=== PATIENT | female | born 1950 | race Caucasian/White ===

== ENCOUNTER → 2016-04-30 | Outpatient (CLI) | payer BC ==
[~2016-04-30] MED LIST: EPP3/2 IM; GABA-113 PO; HYDR-3785 PO; MULT-506 PO; OMEG10007 PO; ONDA4TAB65 PO; URC10 PO
--- NOTE | 2016-04-30 10:30 | Discharge Instructions ---
Discharge Instructions Procedure Procedure Date: Apr 30, 2016. Reason for visit: Left Masses And Asymmetries/Latex Allergy. Discharge Discharge Date: Apr 30, 2016. Discharge Diagnosis: status post breast biopsy Instructions Activity Recommendations: Additional Limitations (see below) Return to School/Work: no limitations Recommended Home Diet: No Limitations Provider Instructions: ACTIVITY RECOMMENDATIONS: * No lifting, pushing, pulling or exercising the affected side for three days. RETURN TO SCHOOL/WORK: * You may return to work/school after the procedure, but do not perform any strenuous activities for 24 to 48 hours. MEDICATIONS: * Tylenol (two 325 mg) every four to six hours if needed for mild pain (if not allergic to Tylenol). DIET: * Resume previous diet. SPECIAL CARE INSTRUCTIONS: * Keep biopsy site dry for 24 hours. May shower after 24 hours, but do not soak (bathe) incision. * May remove Tegaderm (plastic patch) tomorrow AFTER showering. * Leave the steri-strips on for one week. Allow the steri-strips to fall off by themselves. If not off after one week, you may remove them. You may place a Bandaid crosswise over the strips, if desired. * Apply ice 10 minutes on and 10 minutes off as needed. * Wear a bra at bedtime to sleep more comfortably for 2-3 days. * Your referring physician should have the results after approximately 5 to 7 business days. * Call for unusual bleeding, fever, drainage, etc or if you have any questions call during normal business hours or after hours call Dr Alicia, . FOLLOW UP VISIT: Follow-up with Referring Physician as scheduled. Allergies Coded Allergies: BEE STING (Verified Allergy, Severe, ANAPHYLAXIS, 10/14/15) Latex1 -Allergic Contact Dermititis (Unverified Adverse Reaction, Unknown , unkwn, 10/14/15) Fitz Burt Recommendations: Call your doctor if: * Temperature above 101 degrees * Pain not relieved by pain medicine ordered * There is increased drainage or redness from any incision * You have any unanswered questions or concerns. Your Doctors Instructions noted above were prepared by provider Rola Alicia. Patient Signature Section: Patient Instructions Signature Page Cristiana Ramos Patient (or Guardian) Signature/Date: I have read and understand the instructions given to me by my caregivers. Caregiver/RN/Doctor Signature/Date: The above-named patient and/or guardian has received patient instructions on this date. + Original Patient Signature Page (only) stays with chart. Please make copy for patient.
--- NOTE | 2016-04-30 13:52 | MAMMOGRAPHY REPORT ---
THIS REPORT HAS BEEN AMENDED. ULTRASOUND GUIDED BIOPSY LEFT BREAST: 04/30/2016 CLINICAL HISTORY: Left 10:00 breast mass. PATIENT CONSENT: The procedure, risks and benefits were discussed with the patient and informed writ ten consent was obtained. A timeout was performed immediately prior to the procedure. PROCEDURE DESCRIPTION: With ultrasound guidance, aseptic technique, and lidocaine as the local anest hetic (1% lidocaine to anesthetize the skin and 1% lidocaine with epinephrine to anesthetize the vel per tissues), the mass of concern in the left 10:00 breast was sampled 4 times with a 14-gauge Achie ve biopsy needle. Immediately thereafter, with ultrasound guidance, aseptic technique, and lidocain e as the local anesthetic, a metallic localizer clip was placed centrally in the mass. Direct press ure was applied to the site immediately post procedure and hemostasis was achieved. Postprocedure u nilateral mammograms were performed to confirm placement of the clip in the expected location of the breast mass. The patient tolerated the procedure without complication. She was given wound care instructions. The specimens were sent to pathology for analysis. COMPARISON: Comparison is made to exams dated: 03/19/2016 mammogram, 05/09/2012 mammogram, 04/27/2010 mammogram, 04/28/2011 mammogram, and 04/24/2009 mammogram - [facility]. IMPRESSION: ULTRASOUND GUIDED BIOPSY Ultrasound guided core needle biopsy of the left 10:00 breast mass, with clip placement. The patien t will receive pathology results from her referring physician. Pending malignant pathology results, would recommend bilateral breast MRI to further evaluate the other left breast masses and left axil harriet lymph nodes. Rola Alicia M.D. ah/:04/30/2016 12:15:33 Briquette Maker: Arabella Manley, [facility] AMENDMENT: 05/13/2016 Rola Alicia M.D. Pathology results from ultrasound-guided biopsy of the left 10:00 breast mass were reviewed on 2016. The pathology shows infiltrating ductal carcinoma grade 1, which is concordant with the imagi ng appearance. As recommended on the diagnostic report, bilateral breast MRI is recommended for fur ther evaluation. If breast MRI is not obtained, then ultrasound-guided biopsy should be performed o f the left subareolar breast mass.
--- NOTE | 2016-04-30 13:53 | MAMMOGRAPHY REPORT ---
UNILATERAL LEFT DIGITAL DIAGNOSTIC MAMMOGRAM TOMOSYNTHESIS AND TARGETED LEFT ULTRASOUND: 04/30/2016 CLINICAL HISTORY: Callback from screening mammogram for left breast mass and asymmetries. TECHNIQUE: Breast tomosynthesis in addition to standard 2D mammography was performed. Spot nandini isael left CC and MLO 2-D and tomosynthesis images, spot magnification left CC and ML views, and post procedural left CC and ML views were obtained. COMPARISON: Comparison is made to exams dated: 03/19/2016 mammogram, 05/09/2012 mammogram, 04/28/2011 mammogram, 04/27/2010 mammogram, 04/24/2009 mammogram - [facility], and 04/23/2008. BREAST COMPOSITION: The tissue of the left breast is heterogeneously dense, which may obscure small masses. FINDINGS: Spot magnification views of the left breast demonstrate an irregular spiculated 1.5 x 1.3 cm mass in the left upper inner quadrant. Additionally, there is an oval circumscribed 7 x 5 mm ma ss in the left subareolar breast which appears more prominent in size compared to prior exams. Spot compression views of the left breast demonstrate a possible oval circumscribed 6 mm mass seen withi n the left superior posterior breast, only clearly seen on the MLO view but is thought to project la terally based on the tomosynthesis localizer bar. This is only well seen on the tomosynthesis image s so it is difficult to accurately compare with prior exams. The other previously seen asymmetry mo re inferiorly effaces on the additional spot compression views. Targeted ultrasound was performed of the left breast. In the left breast at 10:00, 3 cm from the ni pple, there is a hypoechoic irregular solid mass which measures 1.3 x 1.3 x 1.2 cm. This correspond s with the mammographic mass and is highly suspicious for malignancy. Targeted ultrasound was perfo rmed of the left upper outer quadrant in the region of the possible circumscribed 6 mm mass seen on the mammogram. No suspicious solid masses were evident. In the left breast at 3:00, 7 cm from the nipple, there is an oval anechoic 4 x 4 mm mass which is benign and consistent with a simple cyst. This likely does not correlate with the mammographic mass; however, the mammographic mass has a rosalba gn morphology and may represent an intramammary lymph node which is occult on ultrasound. Targeted ultrasound was performed of the left axilla. There is one axillary lymph node measuring 1. 6 cm, which has a normal fatty hilum and the majority of the cortex is thin, however, there is one a cedric of focal thickening of the cortex which measures 3 mm in cortical thickness. This is equivocal. Two other lymph nodes do not clearly have echogenic fatty shilpi and are therefore also equivocal, o ne measuring 6 x 3 x 4 mm and the other measuring 4 x 4 mm. Targeted ultrasound was performed of the left subareolar breast in the region of the mammographic ma ss. In the left 11:00 subareolar breast, there is an oval hypoechoic solid appearing mass which mo sures 8 x 5 x 6 mm. This corresponds with the mammographic mass and is indeterminant given the incr eased size mammographically and solid appearance on ultrasound. Postprocedural mammograms were performed after the core needle biopsy, which shows a new biopsy tory er clip seen within the biopsied left 10:00 breast mass. IMPRESSION: ACR BI-RADS CATEGORY 5: HIGHLY SUGGESTIVE OF MALIGNANCY, TARGETED ULTRASOUND ACR BI-RAD S CATEGORY 5: HIGHLY SUGGESTIVE OF MALIGNANCY 1. Highly suspicious 1.5 cm mass seen within the left breast at 10:00, for which ultrasound guided biopsy is recommended for further evaluation. This was performed immediately after the diagnostic w orkup. 2. Hypoechoic 8 mm mass in the left subareolar breast, which appears more prominent compared to liana or mammograms. The mass is indeterminant. If pathology results of the left 10:00 breast mass are m alignant, would recommend bilateral breast MRI due to the dense breast parenchyma mammographically, and the subareolar mass could be evaluated on MRI. Alternatively, if MRI is not performed, recommen d ultrasound-guided core needle biopsy. 3. Two to three equivocal left axillary lymph nodes. These could also be evaluated on breast MRI t o determine whether a core biopsy should be performed. 4. Circumscribed benign-appearing 6 mm mass seen within the left superior posterior breast on the t omosynthesis images, which is probably benign and may represent an intramammary lymph node. This co uld also be evaluated on MRI. A phone call was made to the physician's office to confirm faxed results were received. The patient was verbally notified of the results. The biopsy of the left 10:00 breast mass was performed immed iately after the diagnostic workup. Approximately 10% of breast cancers are not detected with mammography. A negative mammographic repor t should not delay biopsy if a clinically suggestive mass is present. Rola Alicia M.D. ah/:04/30/2016 12:13:50 Position Classifier: Rola Alicia MD, [facility] BI-RADS Code: ACR BI-RADS Category 5: Highly Suggestive Of Malignancy Ultrasound BI-RADS: ACR BI-RA DS Category 5: Highly Suggestive Of Malignancy
== END | disposition home or self-care (01) ==
LOC: C.MAMM 09:33
PROVIDERS: ATTEND Family Medicine
DX: N63 Unspecified lump in breast (principal); D05.12 Intraductal carcinoma in situ of left breast

== ENCOUNTER → 2016-05-20 | Outpatient (CLI) | payer BC ==
--- NOTE | 2016-05-20 14:54 | DIAGNOSTIC IMAGING REPORT ---
LYMPH SENTINEL NODE ID CLINICAL HISTORY: Left breast carcinoma COMPARISON STUDY: No previous studies for comparison. FINDINGS: A timeout was performed. Topical ethyl chloride was applied to the left breast. Left breast was prepped in a sterile fashion. 5 perilesional intradermal injections utilizing a total of 0.5 mCi of technetium 99m lymphoseek were performed. IMPRESSION: Successful left breast lymphoscintigraphic injection. Electronically signed by: Archie Stokes M.D. 05/20/2016 2:53 PM Dictated Date/Time: 05/20/2016 2:51 PM
== END | disposition home or self-care (01) ==
LOC: C.NUCL 13:58
PROVIDERS: ATTEND Surgery
DX: C50.912 Malignant neoplasm of unspecified site of left female breast (principal)

== ENCOUNTER → 2017-01-05 | Outpatient (CLI) | payer BC ==
[~2017-01-05] MED LIST changes: -URC10 PO
--- NOTE | 2017-01-06 07:48 | MAMMOGRAPHY REPORT ---
BILATERAL DIGITAL DIAGNOSTIC MAMMOGRAM TOMOSYNTHESIS WITH CAD: 01/05/2017 CLINICAL HISTORY: History of left breast cancer status post lumpectomy May 2016 as well as radiatio n therapy. The patient reports no current complaints. TECHNIQUE: Breast tomosynthesis in addition to standard 2D mammography was performed. Current study was also evaluated with a Computer Aided Detection (CAD) system. Bilateral CC and MLO 2-D and tomosy nthesis images and spot magnification left CC and ML views were obtained. COMPARISON: Comparison is made to exams dated: 04/30/2016 ultrasound, 04/30/2016 mammogram, 04/30/2016 ultrasound biopsy, 03/19/2016 mammogram, 05/09/2012 mammogram, and 04/28/2011 mammogram - [facility]. BREAST COMPOSITION: The tissue of both breasts is heterogeneously dense, which may obscure small mas ses. FINDINGS: There are new postsurgical changes in the left superior breast from prior lumpectomy, inclu ding new density, architectural distortion, and surgical clips at the lumpectomy bed. A linear scar marker denotes a scar on the left superior breast. Spot magnification views of the lumpectomy bed de monstrate no suspicious masses or clusters of microcalcifications. The remainder of both breasts are stable compared to prior exams, without suspicious masses, calcifications, or areas of architectural distortion noted. Scattered bilateral benign-appearing calcifications are not significantly changed . IMPRESSION: ACR-BI-RADS CATEGORY 3: PROBABLY BENIGN New expected post treatment changes in the left breast, without mammographic evidence of malignancy i n either breast. Recommend follow-up diagnostic tomosynthesis mammograms of the left breast in 6 mon ths to reevaluate posttreatment changes. The patient has been verbally notified of the results. Approximately 10% of breast cancers are not detected with mammography. A negative mammographic report should not delay biopsy if a clinically suggestive mass is present. Rola Alicia M.D. /:01/05/2017 13:47:10 Analysis Specialist: Arabella BENTLEY(Estevan)(M), [facility] letter sent: Personal History 3 BI-RADS Code: ACR-BI-RADS Category 3: Probably Benign
== END | disposition home or self-care (01) ==
LOC: C.MAMM 13:10
PROVIDERS: ATTEND Surgery
DX: Z85.3 Personal history of malignant neoplasm of breast (principal)

== ENCOUNTER → 2017-03-10 | Outpatient (CLI) | payer BC | END | disposition home or self-care (01) | LOC: C.MAMM 09:54 | PROVIDERS: ATTEND Family Medicine | DX: N95.8 Other specified menopausal and perimenopausal disorders (principal) ==

== ENCOUNTER → 2017-07-06 | Outpatient (CLI) | payer BC ==
--- NOTE | 2017-07-06 15:14 | MAMMOGRAPHY REPORT ---
UNILATERAL LEFT DIGITAL DIAGNOSTIC MAMMOGRAM TOMOSYNTHESIS WITH CAD: 07/06/2017 CLINICAL HISTORY: History of left breast cancer status post lumpectomy May 2016 as well as radiatio n therapy. The patient reports no new lumps or other new complaints. TECHNIQUE: Breast tomosynthesis in addition to standard 2D mammography was performed. Current study was also evaluated with a Computer Aided Detection (CAD) system. Left CC, MLO, and X CCL 2D and misael synthesis images and spot magnification left CC and ML views were obtained. COMPARISON: Comparison is made to exams dated: 01/05/2017 mammogram, 04/30/2016 ultrasound, 04/30/2016 mammogram, 04/30/2016 ultrasound biopsy, 03/19/2016 mammogram, and 05/09/2012 mammogram - [facility]. BREAST COMPOSITION: The tissue of the left breast is heterogeneously dense, which may obscure small masses. FINDINGS: There are stable post surgical changes in the left 12:00 breast from prior lumpectomy, incl uding stable density, architectural distortion, and surgical clips at the lumpectomy bed. A linear s car marker denotes a scar on the left 12:00 breast. The remainder of the left breast is stable ros red to prior exams, without suspicious masses, calcifications, or areas of architectural distortion n oted. A few scattered punctate benign-appearing calcifications are stable. IMPRESSION: ACR-BI-RADS CATEGORY 3: PROBABLY BENIGN Stable posttreatment changes in the left breast, without mammographic evidence of malignancy in the l eft breast. Recommend bilateral diagnostic tomosynthesis mammograms in 6 months, to reevaluate left breast posttreatment changes and for routine mammography of the right breast. The patient has been verbally notified of the results. Approximately 10% of breast cancers are not detected with mammography. A negative mammographic report should not delay biopsy if a clinically suggestive mass is present. Rola Alicia M.D. /:07/06/2017 11:58:07 Patient Financial Services Coordinator: Arabella Manley, [facility] letter sent: Personal History 3 BI-RADS Code: ACR-BI-RADS Category 3: Probably Benign
== END | disposition home or self-care (01) ==
LOC: C.MAMM 11:25
PROVIDERS: ATTEND Nurse Practitioner Family
DX: Z09 Encounter for follow-up examination after completed treatment for conditions other than malignant neoplasm (principal); Z85.3 Personal history of malignant neoplasm of breast

== ENCOUNTER 2021-09-24 13:38 | Observation (INO) ==
--- NOTE | 2021-09-24 13:59 | Emergency Department Note ---
Impression & Plan GI bleed, H pylori ulcer, Weakness, Hypomagnesemia, Acute dehydration ED Provider Note NAME: RAMÍREZ LARA AGE: 70 SEX: F : 1950 ARRIVES VIA: Walk-In INFORMANT: Patient, ED PROVIDER(S): Blair Rico MD Chief Complaint: Bloody diarrhea, weakness HPI: Patient presents due to concern for diarrhea bloody bowel movements weakness. The patient has had nausea but with only 1 episode of vomiting that she states was nonbloody and nonbilious. The patient states that she did have an endoscopy which were recently diagnosed H. pylori that the patient does have a peptic ulcer. Patient states that she had been seen by Dr. Sanders in the past. The patient was started on triple therapy for H. pylori but since then the patient has had worsening symptoms of dehydration fatigue and weakness. The patient states that she has not had any bloody bowel movements in the last 48 hours. The patient does not take any blood thinner medications. The patient denies any alcohol tobacco drug use. Patient denies any history of diverticulitis or inflammatory bowel disease and denies any abdominal pain. Patient Nuys any fevers or chills. The patient does have a friend at bedside states that she has been increasingly weak at home and did have a fall about a week ago. Patient did have an EGD completed by Dr. Sanders on September 02 which showed that the patient has nonbleeding gastric ulcer with no stigmata of bleeding. Patient did have mildly severe reflux esophagitis. ROS: See HPI for pertinent positives and negatives. A total of 10 systems were reviewed and otherwise negative. Past medical history: See below Surgical history: See below Social history: See below Physical Exam: GENERAL: Fatigued in appearance,NAD, wearing a mask, non-toxic. EYE EXAM: Normal conjunctiva. PERRL, no anisocoria and EOM's grossly intact w/o pain. NECK: Supple, no nuchal rigidity, no adenopathy, non-tender. No signs of meningismus. LUNGS: Clear to auscultation. Normal chest wall mechanics. HEART: NSR, no MRG. ABDOMEN: Abdomen soft, non-tender, normo-active bowel sounds, no masses, no rebound or guarding. BACK: No CVA TTP. SKIN: No rashes and no bruising. Rectal: No obvious anal fissure, nonthrombosed external hemorrhoid noted, nonbleeding, bright red blood, heme positive. UPPER EXTREMITIES: Upper extremities are grossly normal. LOWER EXTREMITIES: Grossly normal, no edema. NEURO EXAM: A&O x3, cranial nerves II-XII grossly intact, normal speech, moves all 4 extremities on command w/o issue. Differential diagnoses: Diverticulosis, AVM, coagulopathy, colitis, inflammatory bowel disease, malignancy, Josefina-Torres tear, esophagitis, peptic ulcer disease, variceal bleed, gastritis, epistaxis, fissure, hemorrhoids, as well as other pathologies. Course: Patient was seen and evaluated the bedside. Full history physical exam was performed. EKG interpreted by me Rate of 84, normal QRS, normal axis, significant motion artifact makes it difficult to interpret but do believe the patient is in sinus and less likely A. fib. Patient appears to have P waves and on strip V5 Imaging Studies: See Below Cardiac monitoring: An order was placed for continuous cardiac monitoring. The monitor shows a rate of 82 with sinus rhythm. MDM: Patient did present due to concern for weakness and diarrhea. The patient did present with hypotension. Patient blood work showed leukopenia with mild anemia hemoglobin of 11 but a change of approximately 2 points since her most recent hemoglobin. Platelet count is normal. Kidney function grossly unremarkable but with prerenal azotemia. The patient does have hypomagnesemia and hyperphosphatemia. Troponin is not elevated. Hemoccult positive. Patient did have rectal exam performed with esthetician/owner nurse Zamzam. COVID-negative. Patient did have type and screen ordered. I did further discuss the findings with the patient the patient is agreeable to staying in hospital at this time. Think that is reasonable given the patient's GI bleed although source being an upper GI bleed to be less likely given the bright red blood; however, given the patient's history of recent PUD on EGD do think that the patient would benefit from inpatient treatment trending H&H and continued hydration due to dehydration. Patient was ordered a second liter of IV fluids patient was given strict follow-up, discharge, and return precautions. All questions were answered. Patient was deemed suitable for outpatient follow-up at this time. Patient agreed with the plan of care and was discharged home. 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) hx of Alcohol withdrawal seizure last 9yrs ago per pt were related to drinking alcohol--reason for gabapentin Alcoholic pancreatitis Auditory hallucinations hx of when drinking alcohol Breast cancer (04/30/16) Delirium tremens Depression with anxiety History of COVID-19 diagnosed 04/15/20 @ [facility] [place]--asymptomatic--diagnosed prior to a scheduled sx History of COVID-19 asymptomatic, positive March 2020 (tested prior to surgery) History of facial trauma History of femur fracture right side--per pt did not heal properly and reason for wheelchair History of right breast cancer diagnosed 03/17/20--sx/oral chemo Loss of appetite Visual hallucinations d/t alcohol use Weight loss, unintentional Wernickes encephalopathy (04/12/14) Wheelchair bound Surgical History History of ankle surgery right History of bilateral cataract extraction History of blepharoplasty bilateral History of colonoscopy History of endometrial ablation History of left breast biopsy History of open reduction and internal fixation (ORIF) procedure right femur--hardware in place History of partial mastectomy of left breast sentinel lymph node removal 06/17/2016 History of tooth extraction History of total right knee replacement (TKR) x3 History of wisdom tooth extraction S/P lumpectomy, right breast Family History Other No family history of adverse response to anesthesia Social History Smoking Status: Never smoker Second Hand Exposure: No; Hx Alcohol Use: Yes Alcohol type: wine Hx Substance Use: No Preferred Language: Cuban Communication Ability: Effective [employer] Equipment Mechanic Required: No Beliefs That Will Affect Care: None Current Living Situation: Alone Current Living Situation Comment: lives alone, does not live with Feels Safe at Home: Yes Sunscreen Use: No Assistive Devices: Glasses and Wheelchair Allergies Allergies Allergy/AdvReac Type Severity Reaction Status Date / Time bee venom protein (honey bee) Allergy Severe ANAPHYLAXIS Verified 09/24/21 15:26 adhesive Allergy Intermediate HIVES Verified 09/24/21 15:26 latex Allergy Intermediate Hives Verified 09/24/21 15:26 Home Meds Home Medications Medication Instructions Recorded Confirmed gabapentin 300 mg capsule 300 mg PO HS 12/14/19 09/24/21 hydroxyzine HCl 10 mg tablet 10 mg PO DAILY PRN 08/25/20 09/24/21 tamoxifen 10 mg tablet 10 mg PO Q2D 08/31/21 09/24/21 epinephrine 0.3 mg/0.3 mL 0.3 mg IM UD PRN 09/24/21 09/24/21 injection, auto-injector Previous Rx's Medication Instructions Recorded bismuth subsalicylate 262 mg 2 tab PO QID 14 Days #112 tab 09/04/21 chewable tablet doxycycline hyclate 100 mg capsule 100 mg PO BID #28 cap 09/04/21 metronidazole 250 mg tablet 250 mg PO QID #56 tab 09/04/21 pantoprazole 40 mg tablet,delayed 40 mg PO BID #60 tab 09/04/21 release Results & Data (ED) Vital Signs Vital Signs - 24 hr 09/24/21 13:39 09/24/21 13:45 09/24/21 14:14 Temperature 36.9 C Temperature Source Oral Pulse Rate 96 H Pulse Rate [Left Finger] Pulse Rate from SpO2 Sensor Pulse Rhythm Regular Pulse Strength Normal Respiratory Rate 18 18 18 Respiratory Effort / Characteristics Non-Labored Non-Labored Spontaneous Respiratory Depth Normal Normal Respiratory Pattern Regular Regular Blood Pressure 94/60 L Blood Pressure [Right Arm] Blood Pressure Mean 71 Blood Pressure Mean [Right Arm] Blood Pressure Position Sitting Pulse Oximetry 98 97 98 Oxygen Delivery Method Room Air Room Air Room Air Sepsis Recent Fever Within 48 Hours No Sepsis New/Unexplained Change in Mental Status No Sepsis Action Taken by Nursing No Action Required 09/24/21 15:00 09/24/21 15:30 09/24/21 16:00 Temperature Temperature Source Pulse Rate 87 78 Pulse Rate [Left Finger] Pulse Rate from SpO2 Sensor 79 Pulse Rhythm Pulse Strength Respiratory Rate 25 H 16 18 Respiratory Effort / Characteristics Respiratory Depth Respiratory Pattern Blood Pressure 100/55 L 102/64 105/62 Blood Pressure [Right Arm] Blood Pressure Mean 70 76 76 Blood Pressure Mean [Right Arm] Blood Pressure Position Pulse Oximetry 100 96 95 Oxygen Delivery Method Sepsis Recent Fever Within 48 Hours Sepsis New/Unexplained Change in Mental Status Sepsis Action Taken by Nursing 09/24/21 16:30 09/24/21 16:32 09/24/21 17:01 Temperature Temperature Source Pulse Rate Pulse Rate [Left Finger] 83 Pulse Rate from SpO2 Sensor 80 81 Pulse Rhythm Pulse Strength Respiratory Rate 16 20 18 Respiratory Effort / Characteristics Respiratory Depth Respiratory Pattern Blood Pressure 92/67 L 96/68 L Blood Pressure [Right Arm] 92/67 L Blood Pressure Mean 75 77 Blood Pressure Mean [Right Arm] 75 Blood Pressure Position Pulse Oximetry 96 100 99 Oxygen Delivery Method Sepsis Recent Fever Within 48 Hours Sepsis New/Unexplained Change in Mental Status Sepsis Action Taken by Half-Way Medications Current Medication List: was personally reviewed by me Laboratory Data Attestation: I reviewed the patient's lab results. Result diagrams: 09/24/21 15:00 09/24/21 15:00 Lab Results 09/24/21 09/24/21 09/24/21 Range/Units 14:34 15:00 15:00 WBC 3.39 L (4.8-10.8) K/ul RBC 3.40 L (3.93-5.22) M/uL Hgb 11.1 L (12.0-16.0) g/dl Hct 33.6 L (34.1-44.9) % MCV 98.8 (80.0-100.0) fL MCH 32.6 (25.0-34.0) pg MCHC 33.0 (32.0-36.0) g/dL RDW Std Deviation 58.6 H (36.4-46.3) fL RDW Coeff of Kulwinder 16.2 H (11.5-14.5) % Plt Count 188 (130-400) K/uL MPV 9.6 (9.4-12.3) fL Immature Gran % (Auto) 0.3 % Neut % (Auto) 57.6 % Lymph % (Auto) 27.7 % Powell % (Auto) 10.3 % Eos % (Auto) 3.8 % Baso % (Auto) 0.3 % Neut # (Auto) 1.95 (1.4-6.5) K/uL Lymph # (Auto) 0.94 L (1.2-3.4) K/uL Powell # (Auto) 0.35 (0.24-0.82) K/uL Eos # (Auto) 0.13 (0-0.50) K/uL Baso # (Auto) 0.01 (0-0.2) K/uL Immature Gran # (Auto) 0.01 (0.00-0.02) K/uL PT (9.0-12.0) Seconds INR (0.9-1.1) APTT (21.0-31.0) Seconds PTT Ratio Sodium (136-145) mmol/L Potassium (3.5-5.1) mmol/L Chloride (98-107) mmol/L Carbon Dioxide (21-32) mmol/L Anion Gap (3-11) BUN (6-23) mg/dl Creatinine (0.6-1.2) mg/dl Est Cr Clr Drug Dosing ml/min Est GFR ( Amer) ml/min Est GFR (Non-Af Amer) ml/min BUN/Creatinine Ratio (10-20) Glucose (70-99(Fasting)) mg/dl Calcium (8.5-10.1) mg/dl Phosphorus (2.5-4.9) mg/dl Magnesium (1.7-2.4) mg/dl Total Bilirubin (0.2-1.0) mg/dl AST (13-39) U/L ALT (7-52) U/L Alkaline Phosphatase (34-104) U/L Troponin I High Sens (0-14) pg/ml Total Protein (6.0-8.3) gm/dl Albumin (3.4-5.0) gm/dl Globulin (2.5-4.0) gm/dl Albumin/Globulin Ratio (0.9-2) POC Stool Occult Blood (Negative) SARS-CoV-2, RNA, NAAT NEGATIVE (NEGATIVE) Blood Type O Positive Antibody Screen NEGATIVE 09/24/21 09/24/21 09/24/21 Range/Units 15:00 15:00 16:40 WBC (4.8-10.8) K/ul RBC (3.93-5.22) M/uL Hgb (12.0-16.0) g/dl Hct (34.1-44.9) % MCV (80.0-100.0) fL MCH (25.0-34.0) pg MCHC (32.0-36.0) g/dL RDW Std Deviation (36.4-46.3) fL RDW Coeff of Kulwinder (11.5-14.5) % Plt Count (130-400) K/uL MPV (9.4-12.3) fL Immature Gran % (Auto) % Neut % (Auto) % Lymph % (Auto) % Powell % (Auto) % Eos % (Auto) % Baso % (Auto) % Neut # (Auto) (1.4-6.5) K/uL Lymph # (Auto) (1.2-3.4) K/uL Powell # (Auto) (0.24-0.82) K/uL Eos # (Auto) (0-0.50) K/uL Baso # (Auto) (0-0.2) K/uL Immature Gran # (Auto) (0.00-0.02) K/uL PT 11.4 (9.0-12.0) Seconds INR 1.1 (0.9-1.1) APTT 24.2 (21.0-31.0) Seconds PTT Ratio 0.9 Sodium 137 (136-145) mmol/L Potassium 3.6 (3.5-5.1) mmol/L Chloride 98 (98-107) mmol/L Carbon Dioxide 26 (21-32) mmol/L Anion Gap 13 H (3-11) BUN 15 (6-23) mg/dl Creatinine 0.72 (0.6-1.2) mg/dl Est Cr Clr Drug Dosing 71.7 ml/min Est GFR ( Amer) 99.0 ml/min Est GFR (Non-Af Amer) 85.4 ml/min BUN/Creatinine Ratio 20.8 H (10-20) Glucose 89 (70-99(Fasting)) mg/dl Calcium 8.6 (8.5-10.1) mg/dl Phosphorus 5.1 H (2.5-4.9) mg/dl Magnesium 1.4 L (1.7-2.4) mg/dl Total Bilirubin 1.4 H (0.2-1.0) mg/dl AST 66 H (13-39) U/L ALT 27 (7-52) U/L Alkaline Phosphatase 64 (34-104) U/L Troponin I High Sens 6.1 (0-14) pg/ml Total Protein 6.0 (6.0-8.3) gm/dl Albumin 3.4 (3.4-5.0) gm/dl Globulin 2.6 (2.5-4.0) gm/dl Albumin/Globulin Ratio 1.3 (0.9-2) POC Stool Occult Blood Positive A (Negative) SARS-CoV-2, RNA, NAAT (NEGATIVE) Blood Type Antibody Screen Administered Medications Pantoprazole Sodium 40 mg/ (Dextrose) 100 mls @ 20 mls/hr IV Q5H KIRK Stop: 10/24/21 16:59 Last Admin: 09/24/21 17:27 Dose: 8 mg/hr, 20 mls/hr Documented by: [id number] Sodium Chloride (Nss 1000ml) 1,000 mls @ 999 mls/hr IV .Q1H1M ONE Stop: 09/24/21 17:42 Last Admin: 09/24/21 16:49 Dose: 999 mls/hr Documented by: [id number] Discontinued Medications Sodium Chloride (Nss 1000ml) 1,000 mls @ 999 mls/hr IV .Q1H1M KIRK Stop: 09/24/21 15:15 Last Infusion: 09/24/21 16:17 Dose: 0 mls/hr Documented by: [id number] Admin: 09/24/21 15:15 Dose: 999 mls/hr Documented by: [id number] Magnesium Sulfate/Dextrose (Magnesium Sulfate / D5w) 1 gm in 100 mls @ 100 mls/hr IV NOW STA Stop: 09/24/21 17:24 Last Infusion: 09/24/21 17:01 Dose: 0 mls/hr Documented by: [id number] Admin: 09/24/21 16:41 Dose: 100 mls/hr Documented by: [id number] Pantoprazole Sodium 80 mg/ (Dextrose) 120 mls @ 400 mls/hr IV NOW ONE Stop: 09/24/21 16:59 Last Admin: 09/24/21 17:27 Dose: 400 mls/hr Documented by: [id number] Discharge Plan Visit Data Chief Complaint: Allergic Reaction Stated Complaint: ALLERGIC REACTION,LETHARGIC Discharge Problem: GI bleed, H pylori ulcer, Weakness, Hypomagnesemia, Acute dehydration Forms Stand Alone Forms: [facility] Prescriptions Prescriptions: No Action doxycycline hyclate 100 mg capsule 100 mg PO BID Qty: 28 RF: 0 metronidazole 250 mg tablet 250 mg PO QID Qty: 56 RF: 0 pantoprazole 40 mg tablet,delayed release (DR/EC) 40 mg PO BID Qty: 60 RF: 5 bismuth subsalicylate 262 mg tablet,chewable 2 tab PO QID 14 Days Qty: 112 RF: 0 gabapentin 300 mg capsule 300 mg PO HS RF: 0 tamoxifen 10 mg Tablet 10 mg PO Q2D RF: 0 epinephrine 0.3 mg/0.3 mL auto-injector 0.3 mg IM UD PRN (Reason: Allergic Reaction) RF: 0 hydroxyzine HCl 10 mg Tablet 10 mg PO DAILY PRN (Reason: Anxiety) RF: 0 Referrals Referrals: Nubia Pratt MD [Primary Care Provider] -
[2021-09-24] MEDS ORDERED: SODIUM CHLORIDE 0.9% 1000ML 1,000 ML IV SCH (14:15)
[2021-09-24 15:36] LABS: Basophils # (auto) 0.01 K/uL (0-0.2); Basophils % (auto) 0.3 %; Eosinophils # (auto) 0.13 K/uL (0-0.50); Eosinophils % (auto) 3.8 %; Hematocrit (blood only) 33.6 % (34.1-44.9); Hemoglobin 11.1 g/dl (12.0-16.0); Immature Granulocytes # (auto) 0.01 K/uL (0.00-0.02); Immature Granulocytes % (auto) 0.3 %; Lymphocytes # (auto) 0.94 K/uL (1.2-3.4); Lymphocytes % (auto) 27.7 %; Mean Corpuscular Hemoglobin 32.6 pg (25.0-34.0); Mean Corpuscular Volume 98.8 fL (80.0-100.0); Mean Platelet Volume 9.6 fL (9.4-12.3); Monocytes # (auto) 0.35 K/uL (0.24-0.82); Monocytes % (auto) 10.3 %; Neutrophils # (auto) 1.95 K/uL (1.4-6.5); Neutrophils % (auto) 57.6 %; Platelet Count 188 K/uL (130-400); RDW Coefficient of Variation 16.2 % (11.5-14.5); RDW Standard Deviation 58.6 fL (36.4-46.3); White Blood Count 3.39 K/ul (4.8-10.8)
[2021-09-24 15:49] LABS: INR 1.1 (0.9-1.1); Partial Thromboplastin Ratio 0.9; Partial Thromboplastin Time 24.2 Seconds (21.0-31.0); Prothrombin Time 11.4 Seconds (9.0-12.0)
[2021-09-24 16:18] LABS: Troponin I High Sensitivity 6.1 pg/ml (0-14)
[2021-09-24 16:19] LABS: Albumin Globulin Ratio 1.3 (0.9-2); Albumin Level 3.4 gm/dl (3.4-5.0); BUN Creatinine Ratio 20.8 (10-20); Bilirubin,Total 1.4 mg/dl (0.2-1.0); Calcium 8.6 mg/dl (8.5-10.1); Creatinine Clr Calc Pharmacy 71.7 ml/min; Est GFR (Non-African American) 85.4 ml/min; Globulin 2.6 gm/dl (2.5-4.0); Magnesium 1.4 mg/dl (1.7-2.4); Phosphorus 5.1 mg/dl (2.5-4.9); Potassium 3.6 mmol/L (3.5-5.1)
[2021-09-24] MEDS ORDERED: MAGNESIUM SULFATE / D5W 1 GM/100 ML BAG IV STA (16:25)
[2021-09-24] MEDS ORDERED: PANTOprazole 80 MG in DEXTROSE 5% 100 ML IV ONE (16:42)
[2021-09-24] MEDS ORDERED: PANTOPRAZOLE BOLUS/DRIP 1 EACH IV STA (16:42)
[2021-09-24] MEDS ORDERED: SODIUM CHLORIDE 0.9% 1000ML 1,000 ML IV ONE (16:42)
--- NOTE | 2021-09-24 16:51 | History & Physical Report ---
Date of Service September 24, 2021 Assessment & Plan (1) Weakness: Plan: - Multifactorial, in setting of low magnesium, multiple loose, bloody BMs daily, reported poor p.o. intake in the setting of daily alcohol use. - Continue IV fluids, monitor renal function electrolytes. -Her hemoglobin will be monitored as below and evaluate for possible GI bleed which may be contributing to weakness. (2) H pylori ulcer: Plan: - Started on quadruple therapy--Pepto-Bismol, doxycycline, Flagyl, Protonix. Weakness and loose, bloody BMs since onset. Stopped treatment prematurely on day #10, 09/21. - Will continue treatment regimen, as it is more likely alcohol consumption while on antibiotics, specifically Flagyl, is causing her side effects. (3) GI bleed: Plan: - Known gastric ulcer as seen on EGD from 09/02. Without a history of varices. Patient hemodynamically stable. Her BUN is 15, which points away from this being a brisk UGI bleed. - Reports multiple, large BMs with bright red blood x 10 days. Hgb 11.1, baseline seems to be 13. Hemoccult + in ED. - Will continue to follow H/H. - PPI drip. - GI consulted, appreciate their recommendations. - Iron studies with B12 and folate with a.m. labs. -Clear liquid for now, will make n.p.o. at midnight in case of intervention tomorrow AM. (4) Alcohol use: Plan: - Patient states she drinks 1 glass of wine/night. Upon review of previous records from 2016, patient has had severe withdrawal including visual and audito ry hallucinations and DTs. Wernicke encephalopathy is noted on her chart. There are not more recent hospitalizations or records to indicate current alcohol use. - Will place on AWSS with Ativan as needed and will closely monitor for signs of withdrawal and need to increase management of withdrawal. - Continue gabapentin 300 mg HS. - IVF with p.o. thiamine and folate supplementation. (5) Leukopenia: Plan: - 3.39, was around this level in August 2020 but more recently this past Feb was 6.4. - On tamoxifen which can cause low WBC count. - Continue to follow on AM labs. (6) Hypomagnesemia: Plan: - 1.4, in setting of PPI use, poor p.o. intake, daily alcohol use. - Replete and recheck in AM. (7) History of breast cancer: Plan: - S/p right lumpectomy, s/p partial left mastectomy - Continue tamoxifen. (8) Wheelchair bound: Plan: - Apparently due to a femur fracture that healed incorrectly, patient is wheelchair bound at home but uses a walker to ambulate in public. Plan: - Admit to med/tele. - SCDs for VTE ppx. - Full Code. History of Present Illness Chief Complaint: weakness, bloody BMs Primary Care Provider: Nubia Pratt MD Cristiana Ramos is a 70-year-old female with past medical history of breast cancer s/p mastectomy on tamoxifen, PUD due to H. pylori, anxiety, and alcohol abuse who presents today with concerns for weakness and bloody BMs for the past 10 days. She ravi an EGD done 09/[address] Sanders for unintentional weight loss, a nonbleeding gastric ulcer was identified and later confirmed h pylori infection, therefore patient was started on quadruple therapy w/ Pepto Bismol, doxycycline, Flagyl, and Protonix. She took this as prescribed, however from the first day on them she became weak on her feet and has been having multiple, explosive BMs daily with bright red blood in them. She lives alone and feels unable to continue caring for herself under these circumstances. In Ed, she is borderline hypotensive, otherwise VS within normal limits and have been stable. Labs remarkable for WBC 3.39, Hgb 11.1, magnesium 1.4, to be 1.4, AST 66. Hemoccult positive. Allergies Allergy/AdvReac Type Severity Reaction Status Date / Time bee venom protein (honey bee) Allergy Severe ANAPHYLAXIS Verified 09/24/21 15:26 adhesive Allergy Intermediate HIVES Verified 09/24/21 15:26 latex Allergy Intermediate Hives Verified 09/24/21 15:26 Home Medications Medication Instructions Recorded Confirmed Type gabapentin 300 mg capsule 300 mg PO HS 12/14/19 09/24/21 History hydroxyzine HCl 10 mg tablet 10 mg PO DAILY PRN 08/25/20 09/24/21 History tamoxifen 10 mg tablet 10 mg PO Q2D 08/31/21 09/24/21 History bismuth subsalicylate 262 mg 2 tab PO QID 14 Days #112 tab 09/04/21 09/24/21 Rx chewable tablet doxycycline hyclate 100 mg capsule 100 mg PO BID #28 cap 09/04/21 09/24/21 Rx metronidazole 250 mg tablet 250 mg PO QID #56 tab 09/04/21 09/24/21 Rx pantoprazole 40 mg tablet,delayed 40 mg PO BID #60 tab 09/04/21 09/24/21 Rx release epinephrine 0.3 mg/0.3 mL 0.3 mg IM UD PRN 09/24/21 09/24/21 History injection, auto-injector 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) hx of Alcohol withdrawal seizure last 9yrs ago per pt were related to drinking alcohol--reason for gabapentin Alcoholic pancreatitis Auditory hallucinations hx of when drinking alcohol Breast cancer (04/30/16) Delirium tremens Depression with anxiety History of COVID-19 diagnosed 04/15/20 @ [facility] [place]--asymptomatic--diagnosed prior to a scheduled sx History of COVID-19 asymptomatic, positive March 2020 (tested prior to surgery) History of facial trauma History of femur fracture right side--per pt did not heal properly and reason for wheelchair History of right breast cancer diagnosed 03/17/20--sx/oral chemo Loss of appetite Visual hallucinations d/t alcohol use Weight loss, unintentional Wernickes encephalopathy (04/12/14) Wheelchair bound Surgical History History of ankle surgery right History of bilateral cataract extraction History of blepharoplasty bilateral History of colonoscopy History of endometrial ablation History of left breast biopsy History of open reduction and internal fixation (ORIF) procedure right femur--hardware in place History of partial mastectomy of left breast sentinel lymph node removal 06/17/2016 History of tooth extraction History of total right knee replacement (TKR) x3 History of wisdom tooth extraction S/P lumpectomy, right breast Family History Other No family history of adverse response to anesthesia Social History Smoking Status: Never smoker Second Hand Exposure: No; Hx Alcohol Use: Yes Alcohol type: wine Hx Substance Use: No Preferred Language: Estonian Communication Ability: Effective Datacap Developer Required: No Beliefs That Will Affect Care: None Current Living Situation: Alone Current Living Situation Comment: lives alone, does not live with Feels Safe at Home: Yes Sunscreen Use: No Assistive Devices: Glasses and Wheelchair Review of Systems Review of Systems: Constitutional: Generalized weakness, fatigue for past 10 days; no no fever/chills, myalgias, anorexia, night sweats Eyes: No diplopia, no worsening or blurred vision ENT: normal hearing, no trouble swallowing Respiratory: No cough, sputum, dyspnea at rest or on exertion Cardiovascular: No chest pain, tightness or palpitations Abdomen: Large caliber, loose bloody BMs multiple times a day x10 days; no pain, nausea, vomiting : Denies dysuria, hematuria, increased urgency/frequency, urinary retention Musculoskeletal: No joint pain, calf pain, swelling Neurologic: No weakness, numbness/tingling, or balance problems Psychiatric: No anxiety or depression Skin: No rash or itch Physical Exam Physical Exam: General: awake, alert, no apparent distress Head: Normocephalic, atraumatic ENT: PERRL, EOMI, no pharyngeal exudate, mucous membranes moist Chest: Clear to auscultation, on room air, no adventitious breath sounds Cardiac: Regular rate and rhythm, no murmur, no JVD, normal peripheral pulses, good capillary refill Abdominal: NABS x 4 quadrants, soft, nontender to palpation, no rebound, guarding or tenderness Extremities: Normal inspection, no peripheral edema or erythema, calfs nontender to palpation Psych: Normal mood and affect Neuro: AAO x 3, strength intact bilaterally and rated 5/5, no motor deficits, speech is clear, no peripheral sensory deficits Skin: no rash or erythema Results & Data Results & Data ([facility]) Vital Signs (Past 12 Hours) Vital Signs Temp Pulse Pulse Resp BP BP Pulse Ox 09/24/21 16:32 83 20 92/67 L 100 09/24/21 16:00 18 105/62 95 09/24/21 15:30 78 16 102/64 96 09/24/21 15:00 87 25 H 100/55 L 100 09/24/21 14:14 18 98 09/24/21 13:45 36.9 C 96 H 18 94/60 L 97 09/24/21 13:39 18 98 Laboratory Results Abnormal lab results 09/24/21 09/24/21 09/24/21 Range/Units 15:00 15:00 16:40 WBC 3.39 L (4.8-10.8) K/ul RBC 3.40 L (3.93-5.22) M/uL Hgb 11.1 L (12.0-16.0) g/dl Hct 33.6 L (34.1-44.9) % RDW Std Deviation 58.6 H (36.4-46.3) fL RDW Coeff of Kulwinder 16.2 H (11.5-14.5) % Lymph # (Auto) 0.94 L (1.2-3.4) K/uL Anion Gap 13 H (3-11) BUN/Creatinine Ratio 20.8 H (10-20) Phosphorus 5.1 H (2.5-4.9) mg/dl Magnesium 1.4 L (1.7-2.4) mg/dl Total Bilirubin 1.4 H (0.2-1.0) mg/dl AST 66 H (13-39) U/L POC Stool Occult Blood Positive A (Negative) Code Status & VTE Plan Code Status Full code PG Care Time/CCT Total # of Minutes Spent Total Time Spent with Patient: Total time spent is greater than 50% in coordination of care (as documented) at patient's floor/unit and/or counseling patient: Coding Level of Care Code INT OBSERVATION CARE 50M LVL 2 Diagnoses History of breast cancer Z85.3 Wheelchair bound Z99.3 H pylori ulcer K27.9; B96.81 GI bleed K92.2 Alcohol use Z72.89 Hypomagnesemia E83.42 Weakness R53.1 Leukopenia D72.819
[2021-09-24] MEDS: PANTOprazole 40 MG in DEXTROSE 5% 100 ML IV SCH (17:27)
[2021-09-24] MEDS ORDERED: POLYETHYLENE (MIRALAX) 17 GM PACK PO PRN (19:57)
[2021-09-24] MEDS ORDERED: LORazepam 1 MG TAB PO PRN (19:57)
[2021-09-24] MEDS ORDERED: hydrOXYzine HCl 10 MG TAB PO PRN (19:57)
[2021-09-24] MEDS ORDERED: ONDANSETRON INJ 2 MG/ML 2 ML VIAL IV PRN (19:57)
[2021-09-24] MEDS: metroNIDAZOLE 250 MG/50 ML BAG IV SCH (21:09)
[2021-09-24] MEDS: LACTATED RINGER'S 1,000 ML IV SCH (21:44)
[2021-09-24] MEDS: MAGNESIUM SULFATE / D5W 1 GM/100 ML BAG IV SCH (23:39)
[2021-09-25] MEDS: GABAPENTIN 300 MG CAP PO SCH ×2 (00:20→22:29)
[2021-09-25] MEDS: BISMUTH SUBSALICYLATE 262 MG CHEW PO SCH ×5 (00:20→22:29)
[2021-09-25] MEDS: FOLIC ACID 1 MG TAB PO SCH ×2 (00:21→08:05)
[2021-09-25] MEDS: THIAMINE HCL 100 MG TAB PO SCH ×2 (00:21→08:05)
[2021-09-25] MEDS: DOXYCYCLINE HYCLATE 100 MG in DEXTROSE 5% 100 ML IV SCH ×3 (00:37→22:50)
[2021-09-25] MEDS: MAGNESIUM SULFATE / D5W 1 GM/100 ML BAG IV SCH (02:03)
[2021-09-25] MEDS: metroNIDAZOLE 250 MG/50 ML BAG IV SCH ×2 (02:26→08:05)
[2021-09-25] MEDS: PANTOprazole 40 MG in DEXTROSE 5% 100 ML IV SCH ×3 (04:54→23:04)
[2021-09-25] MEDS: TAMOXIFEN CITRATE 10 MG TABLET PO SCH (08:05)
[2021-09-25] MEDS: LACTATED RINGER'S 1,000 ML IV SCH (08:07)
--- NOTE | 2021-09-25 09:18 | Gastrointestinal Consultation ---
Date of Consultation September 25, 2021 Assessment & Plan (1) GI bleed: Possible etiologies include gastric ulcer, though seems less likely due to normal BUN, mild anemia, & lack of melena. Other possibilities include hemorrhoidal bleeding due to recent diarrhea vs other. -Keep NPO. EGD today to rule out issues with known ulcer -Continue Protonix gtt -Continue last 4 days of H Pylori treatment as presently prescribed. Would again emphasize that there should be no alcohol use with Flagyl. -Continue to monitor H/H -Further recommendations pending EGD Supervising Physician Co-Signing Physician Notes I personally evaluated the patient and agree with the findings as documented by Birdie Hudson, GAURAV Exam: Constitutional: WD/WN, vitals as above General: EOM intact bilaterally Neck: normal visual inspection Respiratory: normal respiratory effort, lungs clear to auscultation Cardiovascular: RRR, no murmur, no edema Gastrointestinal: abdomennormal to inspection, nondistended, soft, nontender, no hepatosplenomegaly Musculoskeletal: no cyanosis, head normal to inspection Skin: no rashes, warm and dry Neurologic: moves all extremities Psychiatric: A and O x3, euthymic affect Proceed with EGD. risks/benefits and procedure discussed with patient, who agrees to proceed History of Present Illness Reason for Consultation: GI bleed Attending Physician: Abelino Wilder MD History of Present Illness Patient is a 70 yo female with PMH of alcoholism, breast cancer, and recent diagnosis of gastric ulcer, esophagitis, & H Pylori noted on EGD on 09/02/21. The patient notes that she did not complete her course of antibiotics for H Pylori. She stopped at day 10 citing diarrhea as a side effect. She was not on her PPI either. She notes that 10 days ago she began experiencing bright red blood per rectum. Yesterday she was feeling weak and dizzy. She presented to the ED hypotensive. Her hemoglobin did decrease from 13 when last checked to 11.1 today. Hematocrit 33.6. She notes that she has hemorrhoids. No noted NSAID use. Since admission, she has been placed on an IV Protonix drip along with Doxycycline & Flagyl to complete her H Pylori course (reportedly has 4 more days of therapy). Allergies Allergy/AdvReac Type Severity Reaction Status Date / Time bee venom protein (honey bee) Allergy Severe ANAPHYLAXIS Verified 09/25/21 13:28 adhesive Allergy Intermediate HIVES Verified 09/25/21 13:28 latex Allergy Intermediate Hives Verified 09/25/21 13:28 Home Medications Medication Instructions Recorded Confirmed Type gabapentin 300 mg capsule 300 mg PO HS 12/14/19 09/24/21 History hydroxyzine HCl 10 mg tablet 10 mg PO DAILY PRN 08/25/20 09/24/21 History tamoxifen 10 mg tablet 10 mg PO Q2D 08/31/21 09/24/21 History bismuth subsalicylate 262 mg 2 tab PO QID 14 Days #112 tab 09/04/21 09/24/21 Rx chewable tablet doxycycline hyclate 100 mg capsule 100 mg PO BID #28 cap 09/04/21 09/24/21 Rx metronidazole 250 mg tablet 250 mg PO QID #56 tab 09/04/21 09/24/21 Rx pantoprazole 40 mg tablet,delayed 40 mg PO BID #60 tab 09/04/21 09/24/21 Rx release epinephrine 0.3 mg/0.3 mL 0.3 mg IM UD PRN 09/24/21 09/24/21 History injection, auto-injector Patient History Medical History 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) hx of Alcohol withdrawal seizure last 9yrs ago per pt were related to drinking alcohol--reason for gabapentin Alcoholic pancreatitis Auditory hallucinations hx of when drinking alcohol Breast cancer (04/30/16) Delirium tremens Depression with anxiety History of COVID-19 diagnosed [place]15/20 [place] [facility] [place]--diagnosed prior to a scheduled sx History of COVID-19 asymptomatic, positive March 2020 (tested prior to surgery) History of facial trauma History of femur fracture right side--per pt did not heal properly and reason for wheelchair History of right breast cancer diagnosed 03/17/20--sx/oral chemo Loss of appetite Visual hallucinations d/t alcohol use Weight loss, unintentional Wernickes encephalopathy (04/12/14) Wheelchair bound Surgical History History of ankle surgery right History of bilateral cataract extraction History of blepharoplasty bilateral History of colonoscopy History of endometrial ablation History of left breast biopsy History of open reduction and internal fixation (ORIF) procedure right femur--hardware in place History of partial mastectomy of left breast sentinel lymph node removal 06/17/2016 History of tooth extraction History of total right knee replacement (TKR) x3 History of wisdom tooth extraction S/P lumpectomy, right breast Family History Other No family history of adverse response to anesthesia Social History Smoking Status: Never smoker Second Hand Exposure: No; Hx Alcohol Use: Yes Alcohol type: wine Hx Substance Use: No Preferred Language: Kuwaiti Communication Ability: Effective Mortgage Loan Closer Required: No Beliefs That Will Affect Care: None marital status: Legally Current Living Situation: Alone Current Living Situation Comment: lives alone, does not live with . Caregiver lives 10 min away Other Information That Helps Us Care for You: No Feels Safe at Home: Yes Safety Concerns: Feels Safe At This Time Sunscreen Use: No Assistive Devices: Walker and Wheelchair Review of Systems Constitutional: no fever and no chills Respiratory: no cough and no dyspnea Cardiovascular: no chest pain Gastrointestinal: + blood in stools; no abdominal pain, no heartburn and no melena Musculoskeletal: no problem reported Psychiatric: no problem reported Hematologic / Lymphatic: no unexplained weight loss Physical Exam Constitutional: WD/WN, vitals as above Respiratory: normal respiratory effort Cardiovascular: Rate/Rhythm: regular rate Gastrointestinal (Abdomen): normal bowel sounds, soft, nontender, no hepatosplenomegaly Musculoskeletal: Head/Neck/Chest: normocephalic Psychiatric: Orientation: alert and oriented x 3 Results & Data ([facility]) Vital Signs (Past 12 Hours) Vital Signs Temp Pulse Pulse Pulse Resp BP Pulse Ox 09/25/21 07:45 36.6 C 80 17 100/70 100 09/25/21 04:55 36.6 C 77 18 99/63 L 100 09/24/21 23:00 92 H 09/24/21 22:54 36.4 C L 89 18 110/69 95 09/24/21 21:27 36.7 C 78 18 113/93 100 09/24/21 21:25 36.7 C 73 18 113/93 100 09/24/21 21:19 36.7 C 72 18 113/93 100 Pulse Ox 09/25/21 07:45 09/25/21 04:55 09/24/21 23:00 09/24/21 22:54 09/24/21 21:27 09/24/21 21:25 100 09/24/21 21:19 PG Care Time/CCT Total # of Minutes Spent Total Time Spent with Patient: Total time spent is greater than 50% in coordination of care (as documented) at patient's floor/unit and/or counseling patient: Coding Level of Care Code 30114 Initial Inpt Care Lvl 3 Diagnoses GI bleed K92.2 GI bleed type/associated pathology: unspecified gastrointestinal hemorrhage type (1) GI bleed GI bleed type/associated pathology: unspecified gastrointestinal hemorrhage type Qualified Code(s): K92.2 - Gastrointestinal hemorrhage, unspecified
[2021-09-25 11:26] LABS: Basophils # (auto) 0.02 K/uL (0-0.2); Basophils % (auto) 0.6 %; Eosinophils # (auto) 0.15 K/uL (0-0.50); Eosinophils % (auto) 4.8 %; Hematocrit (blood only) 31.6 % (34.1-44.9); Hemoglobin 10.3 g/dl (12.0-16.0); Immature Granulocytes # (auto) 0.01 K/uL (0.00-0.02); Immature Granulocytes % (auto) 0.3 %; Lymphocytes # (auto) 0.73 K/uL (1.2-3.4); Lymphocytes % (auto) 23.4 %; Mean Corpuscular Hemoglobin 32.8 pg (25.0-34.0); Mean Corpuscular Hgb Conc 32.6 g/dL (32.0-36.0); Mean Corpuscular Volume 100.6 fL (80.0-100.0); Mean Platelet Volume 9.6 fL (9.4-12.3); Monocytes % (auto) 9.6 %; Neutrophils # (auto) 1.91 K/uL (1.4-6.5); Neutrophils % (auto) 61.3 %; Platelet Count 158 K/uL (130-400); RDW Coefficient of Variation 16.1 % (11.5-14.5); RDW Standard Deviation 59.7 fL (36.4-46.3); Red Blood Count 3.14 M/uL (3.93-5.22); White Blood Count 3.12 K/ul (4.8-10.8)
--- NOTE | 2021-09-25 11:48 | Hospitalist Progress Note ---
Date of Service September 25, 2021 Assessment & Plan (1) Weakness: Plan: - Multifactorial, in setting of low magnesium, multiple loose, bloody BMs daily, reported poor p.o. intake in the setting of daily alcohol use. - Continue IV fluids, monitor renal function electrolytes. - Her hemoglobin will be monitored as below and evaluate for possible GI bleed which may be contributing to weakness. - KCl ordered to replace potassium of 3.2 - PT/OT eval (2) H pylori ulcer: Plan: - Started on quadruple therapy--Pepto-Bismol, doxycycline, Flagyl, Protonix. Weakness and loose, bloody BMs since onset. Stopped treatment prematurely on day #10 (09/21) - Resume treatment regimen, as it is more likely alcohol consumption while on antibiotics, specifically Flagyl, is causing her side effects. - Complete total 14 day course (3) GI bleed: Plan: - Known gastric ulcer as seen on EGD from 09/02. Without a history of varices. Patient hemodynamically stable. Her BUN is 15, which points away from this being a brisk UGI bleed. - Reports multiple, large BMs with bright red blood x 10 days. Hgb 11.1, baseline seems to be 13. Hemoccult + in ED. - Will continue to follow H/H. - PPI drip - GI consulted, for EGD today (has been NPO since [place]) (4) Alcohol use: Plan: - Patient states she drinks 1 glass of wine/night. Upon review of previous records from 2016, patient has had severe withdrawal including visual and auditory hallucinations and DTs. Wernicke encephalopathy is noted on her chart. There are not more recent hospitalizations or records to indicate current alcohol use. - Will place on AWSS with Ativan as needed and will closely monitor for signs of withdrawal and need to increase management of withdrawal. - Continue gabapentin 300 mg HS. - IVF with p.o. thiamine and folate supplementation. (5) Leukopenia: Plan: - 3.39, was around this level in August 2020 but more recently this past Apr was 6.4. - On tamoxifen which can cause low WBC count. - Continue to follow on AM labs. (6) Hypomagnesemia: Plan: - 1.4, in setting of PPI use, poor p.o. intake, daily alcohol use. - Repleted and normalized this AM to 2.0 (7) History of breast cancer: Plan: - S/p right lumpectomy, s/p partial left mastectomy - Continue tamoxifen. (8) Wheelchair bound: Plan: - Apparently due to a femur fracture that healed incorrectly, patient is wheelchair bound at home but uses a walker to ambulate in public. Plan: Interventions as outlined above. Replace potassium. EGD today. Repeat labs in AM. Plan to be d/w Dr. Jenny Wilder. Admission and Anticipated Discharge Date Admission Date: September 24, 2021 Subjective Patient seen on daily rounds this morning. She is resting comfortably in bed and offers no new complaints/concerns. Reports that she did have an episode of diarrhea around 0500 today with some BRB in the toilet. Believes it is from hemorrhoids. She denies chest pain, dyspnea, n/v, abd pain, fever/chills. C urrently NPO until it is determined if she may need any GI procedures. Review of Systems Review of Systems: All systems reviewed and are unremarkable except as noted in HPI and below. Denies fever, chills, fatigue, headache, nasal congestion, sore throat, cough, chest pain, shortness of breath, palpitations, orthopnea, PND, abdominal pain, n/v, constipation, dysuria, hematuria, frequency, back pain, joint pain or swelling, easy bruising or bleeding, skin lesions or rashes. Physical Exam Physical Exam: GENERAL: 70 yo Well-developed, well-nourished WF. NAD. LUNGS: Clear to auscultation bilaterally. No W/R/R. CARDIOVASCULAR: Regular rate and rhythm. ABDOMEN: Soft, non-tender and non-distended. BS normoactive x 4 quad. EXTREMITIES: No edema. Non-tender. Peripheral pulses +2/4. NEUROLOGIC: A&O x3. Nonfocal PSYCHIATRIC: Cooperative. Appropriate mood and affect. SKIN: Warm, dry, intact. No rashes or lesions. Results & Data Results & Data ([facility]) Vital Signs (Past 12 Hours) Vital Signs Temp Pulse Pulse Resp BP Pulse Ox 09/25/21 11:10 36.6 C 77 16 100/70 100 09/25/21 07:45 36.6 C 80 17 100/70 100 09/25/21 04:55 36.6 C 77 18 99/63 L 100 Laboratory Results 09/25/21 10:31 09/25/21 10:31 PG Care Time/CCT Total # of Minutes Spent Total Time Spent with Patient: Total time spent is greater than 50% in coordination of care (as documented) at patient's floor/unit and/or counseling patient: Coding Level of Care Code 51900 Subseq Obs Care Lvl 2 Diagnoses Weakness R53.1 H pylori ulcer K27.9; B96.81 GI bleed K92.2 GI bleed type/associated pathology: unspecified gastrointestinal hemorrhage type Alcohol use Z72.89 Leukopenia D72.819 Hypomagnesemia E83.42 History of breast cancer Z85.3 Wheelchair bound Z99.3 (1) GI bleed GI bleed type/associated pathology: unspecified gastrointestinal hemorrhage type Qualified Code(s): K92.2 - Gastrointestinal hemorrhage, unspecified
[2021-09-25 11:54] LABS: Alanine Aminotransferase 22 U/L (7-52); Albumin Globulin Ratio 1.2 (0.9-2); Albumin Level 2.8 gm/dl (3.4-5.0); Alkaline Phosphatase 52 U/L (34-104); Anion Gap 10 (3-11); Aspartate Aminotransferase 53 U/L (13-39); Bilirubin,Total 1.1 mg/dl (0.2-1.0); Blood Urea Nitrogen 12 mg/dl (6-23); Carbon Dioxide 24 mmol/L (21-32); Chloride 101 mmol/L (98-107); Est GFR (African American) 106.1 ml/min; Est GFR (Non-African American) 91.5 ml/min; Globulin 2.4 gm/dl (2.5-4.0); Glucose 102 mg/dl (70-99(Fasting)); Iron 112 mcg/dl (35-150); Phosphorus 3.5 mg/dl (2.5-4.9); Potassium 3.2 mmol/L (3.5-5.1); Sodium 135 mmol/L (136-145); Total Protein 5.2 gm/dl (6.0-8.3); Unsaturated Iron Binding Cap < 55 mcg/dl (155-355)
[2021-09-25] MEDS ORDERED: POTASSIUM CHLORIDE CRTAB 20 MEQ TABCR PO STA (12:02)
[2021-09-25 12:15] LABS: Folate (Folic Acid) > 22.30 ng/ml (>5.38)
[2021-09-25 12:16] LABS: Vitamin B12 231 pg/ml (180-914)
[2021-09-25 12:22] LABS: Ferritin 906.5 ng/ml (8-388)
--- NOTE | 2021-09-25 12:24 | Anesthesiology Consultation ---
Date of Service September 25, 2021 Assessment & Plan Chart Review Chart Review: Acceptable Risk for Surgery Consults Requested none ASA ASA3 Proposed Anesthesia Anesthesia Type: MAC Risk / Benefits Reviewed With: PT / POA / Parent / Guardian, Accepts Plan and Informed Consent Obtained History Surgery Operation Date: 09/25/21 15:30 Proposed Procedures p Esophagogastroduodenoscopy Dr. Jennifer Rodriguez MD Height/Weight Height: 5 ft 7 in Weight: 65.3 kg Allergies Allergy/AdvReac Type Severity Reaction Status Date / Time bee venom protein (honey bee) Allergy Severe ANAPHYLAXIS Verified 09/25/21 13:28 adhesive Allergy Intermediate HIVES Verified 09/25/21 13:28 latex Allergy Intermediate Hives Verified 09/25/21 13:28 Medications Home Medications Medication Instructions Recorded Confirmed Last Taken gabapentin 300 mg capsule 300 mg PO HS 12/14/19 09/24/21 09/01/21 hydroxyzine HCl 10 mg tablet 10 mg PO DAILY PRN 08/25/20 09/24/21 Unknown tamoxifen 10 mg tablet 10 mg PO Q2D 08/31/21 09/24/21 09/01/21 bismuth subsalicylate 262 mg 2 tab PO QID 14 Days #112 tab 09/04/21 09/24/21 09/21/21 chewable tablet doxycycline hyclate 100 mg capsule 100 mg PO BID #28 cap 09/04/21 09/24/21 09/21/21 metronidazole 250 mg tablet 250 mg PO QID #56 tab 09/04/21 09/24/21 09/21/21 pantoprazole 40 mg tablet,delayed 40 mg PO BID #60 tab 09/04/21 09/24/21 09/21/21 release epinephrine 0.3 mg/0.3 mL 0.3 mg IM UD PRN 09/24/21 09/24/21 Unknown injection, auto-injector Active Medications Generic Name Dose Route Start Last Admin Trade Name Vivian PRN Reason Stop Dose Admin Bismuth Subsalicylate 2 tab 09/24/21 21:00 09/25/21 08:05 Bismuth Subsalicylate 262 Mg Chew PO 10/24/21 20:59 2 tab QID KIRK Administration Folic Acid 1 mg 09/24/21 19:57 09/25/21 08:05 Folic Acid 1 Mg Tab PO 10/24/21 19:56 1 mg QAM KIRK Administration Gabapentin 300 mg 09/24/21 21:00 09/25/21 00:20 Gabapentin 300 Mg Cap PO 10/24/21 20:59 300 mg HS KIRK Administration Pantoprazole Sodium 40 mg/ 100 mls @ 20 mls/hr 09/24/21 17:00 09/25/21 04:54 Dextrose IV 10/24/21 16:59 8 mg/hr Q5H KIRK 20 mls/hr Administration 8 MG/HR Lactated Ringer's 1,000 mls @ 100 mls/hr 09/24/21 19:57 09/25/21 08:07 Lr IV 10/24/21 19:56 100 mls/hr .Q10H KIRK Administration Doxycycline Hyclate 100 mg/ 110 mls @ 50 mls/hr 09/24/21 21:00 09/25/21 10:08 Dextrose IV 10/04/21 20:59 50 mls/hr Q12H KIRK Administration Protocol Tamoxifen Citrate 10 mg 09/25/21 09:00 09/25/21 08:05 Tamoxifen Citrate 10 Mg Tablet PO 10/25/21 08:59 10 mg Q2D KIRK Administration Thiamine HCl 100 mg 09/24/21 19:57 09/25/21 08:05 Thiamine Hcl 100 Mg Tab PO 10/24/21 19:56 100 mg QAM KIRK Administration Past Medical History Medical History 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) hx of Alcohol withdrawal seizure last 9yrs ago per pt were related to drinking alcohol--reason for gabapentin Alcoholic pancreatitis Auditory hallucinations hx of when drinking alcohol Breast cancer (04/30/16) Delirium tremens Depression with anxiety History of COVID-19 diagnosed 04/15/20 @ [facility] [place]omatic--diagnosed prior to a scheduled sx History of COVID-19 asymptomatic, positive March 2020 (tested prior to surgery) History of facial trauma History of femur fracture right side--per pt did not heal properly and reason for wheelchair History of right breast cancer diagnosed 03/17/20--sx/oral chemo Loss of appetite Visual hallucinations d/t alcohol use Weight loss, unintentional Wernickes encephalopathy (04/12/14) Wheelchair bound from hospitalist progress note: Assessment & Plan (1) Weakness: Plan: - Multifactorial, in setting of low magnesium, multiple loose, bloody BMs daily, reported poor p.o. intake in the setting of daily alcohol use. - Continue IV fluids, monitor renal function electrolytes. - Her hemoglobin will be monitored as below and evaluate for possible GI bleed which may be contributing to weakness. - KCl ordered to replace potassium of 3.2 - PT/OT eval (2) H pylori ulcer: Plan: - Started on quadruple therapy--Pepto-Bismol, doxycycline, Flagyl, Protonix. Weakness and loose, bloody BMs since onset. Stopped treatment prematurely on day #10 (09/21) - Resume treatment regimen, as it is more likely alcohol consumption while on antibiotics, specifically Flagyl, is causing her side effects. - Complete total 14 day course (3) GI bleed: Plan: - Known gastric ulcer as seen on EGD from 09/02. Without a history of varices. Patient hemodynamically stable. Her BUN is 15, which points away from this being a brisk UGI bleed. - Reports multiple, large BMs with bright red blood x 10 days. Hgb 11.1, baseline seems to be 13. Hemoccult + in ED. - Will continue to follow H/H. - PPI drip - GI consulted, for EGD today (has been NPO since [place]) (4) Alcohol use: Plan: - Patient states she drinks 1 glass of wine/night. Upon review of previous records from 2016, patient has had severe withdrawal including visual and auditory hallucinations and DTs. Wernicke encephalopathy is noted on her chart. There are not more recent hospitalizations or records to indicate current alcohol use. - Will place on AWSS with Ativan as needed and will closely monitor for signs of withdrawal and need to increase management of withdrawal. - Continue gabapentin 300 mg HS. - IVF with p.o. thiamine and folate supplementation. (5) Leukopenia: Plan: - 3.39, was around this level in August 2020 but more recently this past Apr was 6.4. - On tamoxifen which can cause low WBC count. - Continue to follow on AM labs. (6) Hypomagnesemia: Plan: - 1.4, in setting of PPI use, poor p.o. intake, daily alcohol use. - Repleted and normalized this AM to 2.0 (7) History of breast cancer: Plan: - S/p right lumpectomy, s/p partial left mastectomy - Continue tamoxifen. (8) Wheelchair bound: Plan: - Apparently due to a femur fracture that healed incorrectly, patient is wheelchair bound at home but uses a walker to ambulate in public. Plan: Interventions as outlined above. Replace potassium. EGD today. Repeat labs in AM. Plan to be d/w Dr. Jenny Wilder. Exercise / Class Metabolic Activity IV < 2 Limit ADL/Bedbound Past Family History Family History Other No family history of adverse response to anesthesia Past Surgical History Surgical History History of ankle surgery right History of bilateral cataract extraction History of blepharoplasty bilateral History of colonoscopy History of endometrial ablation History of left breast biopsy History of open reduction and internal fixation (ORIF) procedure right femur--hardware in place History of partial mastectomy of left breast sentinel lymph node removal 06/17/2016 History of tooth extraction History of total right knee replacement (TKR) x3 History of wisdom tooth extraction S/P lumpectomy, right breast Past Anesthesia History No Hx of Anesthesia Complications and No Family Hx of Anesthesia Complications History of PONV No Hx of PONV and No Hx of Motion Sickness Social History Smoking Status: Never smoker Hx Alcohol Use: Yes Alcohol type: wine alcohol intake frequency: 0-2 drinks per day Alcohol Intake Frequency Comment: h/o severe withdrawal sx, encephalopathy, hallucinations Hx Substance Use: No substance use type: does not use Last Used Substance: Days (ago) Review of Systems ROS Unobtainable: All systems reviewed & are unremarkable except as noted in HPI & below Constitutional: as per Subjective / HPI Eyes: as per Subjective / HPI Ear, Nose, Mouth, Throat: as per Subjective / HPI Respiratory: as per Subjective / HPI Cardiovascular: as per Subjective / HPI Gastrointestinal: as per Subjective / HPI Genitourinary (Female): as per Subjective / HPI Musculoskeletal: as per Subjective / HPI Integumentary: as per Subjective / HPI Neurologic: as per Subjective / HPI Psychiatric: as per Subjective / HPI, + hallucinations, + auditory hallucinations and + visual hallucinations Endocrine: as per Subjective / HPI Hematologic / Lymphatic: as per Subjective / HPI Allergy / Immunological: as per Subjective / HPI Physical Exam Vital Signs Last Vital Signs Temp 36.4 C L 09/25/21 13:32 Pulse 79 09/25/21 13:32 Resp 18 09/25/21 13:32 BP 102/63 09/25/21 13:32 Pulse Ox 100 09/25/21 13:32 Constitutional WD/WN, vitals as above well developed, well nourished and + well hydrated; no acute distress ENMT external ear and nose normal, oropharynx normal Mouth: no loose teeth Mallampati Class: I Throat: uvula midline Neck normal visual inspection and trachea midline Respiratory normal respiratory effort, lungs clear to auscultation normal respiratory effort Auscultation: lungs clear to auscultation bilaterally Cardiovascular RRR, no murmur, no edema Rate/Rhythm: regular rate Heart Sounds: no murmur Vessels: no JVD Gastrointestinal (Abdomen) normal bowel sounds, soft, nontender, no hepatosplenomegaly Musculoskeletal Head/Neck/Chest: normocephalic Skin no rashes, warm and dry Neurologic awake; no focal motor deficits Cranial Nerves: tongue midline and symmetric palate elevation Psychiatric A+Ox3, euthymic affect Orientation: alert and oriented x 3 Apperance: appropriately dressed and appropriately groomed Eye Contact: good eye contact Speech: normal rate/rhythm/volume of speech Affect: euthymic affect Judgement: good judgement Testing Laboratory Results 09/25/21 10:31 09/25/21 10:31 PT 11.4 Seconds (9.0-12.0) 09/24/21 15:00 INR 1.1 (0.9-1.1) 09/24/21 15:00 APTT 24.2 Seconds (21.0-31.0) 09/24/21 15:00 Blood Type O Positive 09/24/21 15:00 Antibody Screen NEGATIVE 09/24/21 15:00
--- NOTE | 2021-09-25 13:38 | Electrocardiogram Report ---
Test Reason : Blood Pressure : / mmHG Vent. Rate : 084 BPM Atrial Rate : 086 BPM P-R Int : 000 ms QRS Dur : 058 ms QT Int : 384 ms P-R-T Axes : 000 078 053 degrees QTc Int : 453 ms Poor data quality, interpretation may be adversely affected Sinus rhythm Premature atrial complexes Nonspecific T wave abnormality Low voltage QRS Abnormal ECG When compared with ECG of 27-AUG-2020 12:03, Premature atrial complexes are now Present Confirmed by Lico Ramirez ([id number]) on 09/25/2021 1:38:47 PM Referred By: REFERRED SELF Confirmed By:Lico Ramirez
[2021-09-25] MEDS ORDERED: KETAMINE 50 MG/5 ML SYRINGE ONE (15:04)
--- NOTE | 2021-09-25 15:20 | GI REPORT ---
Patient Name: Cristiana Ramos Procedure Date: 09/25/2021 1:57 PM Date of : 1950 Admit Type: Inpatient Age: 70 Gender: Female Attending MD: Ankush Rodriguez MD Procedure: Upper GI endoscopy Providers: Ankush Rodriguez MD Referring MD: Abelino Wilder Md Indications: Hematochezia Medicines: Monitored Anesthesia Care Complications: No immediate complications. Estimated blood loss: None. Estimated Blood Loss: Estimated blood loss: none. Procedure: Pre-Anesthesia Assessment: - Prior Anticoagulants: The patient has taken no previous anticoagulant or antiplatelet agents. - ASA Grade Assessment: II - A patient with mild systemic disease. After obtaining informed consent, the endoscope was passed under direct vision. Throughout the procedure, the patient's blood pressure, pulse, and oxygen saturations were monitored continuously. The Endoscope was introduced through the mouth, and advanced to the duodenal bulb. The upper GI endoscopy was accomplished without difficulty. The patient tolerated the procedure well. Findings: Mildly severe esophagitis with no bleeding was found in the entire esophagus. One non-bleeding cratered gastric ulcer with no stigmata of bleeding was found in the prepyloric region of the stomach. The duodenal bulb was normal. no evidence of bleeding throughout entire exam. A large hiatal hernia was present. Impression: - Mildly severe candidiasis esophagitis. - Non-bleeding gastric ulcer with no stigmata of bleeding. - Normal duodenal bulb. - No specimens collected. Recommendation: - Return patient to hospital [facility] for ongoing care. - Clear liquid diet today. -start fluconazole 2 week course for leah esophagitis, 400 mg day 1 then 200 mg daily thereafter -trend H/H, transfuse prn, supportive care -CIWA protocol for ETOH rest as per primary team Ankush Rodriguez MD 09/25/2021 3:19:48 PM This report has been signed electronically. Note Initiated On: 09/25/2021 1:57 PM Number of Addenda: 0 I attest to the content of the Intraoperative Record and orders documented therein, exceptions below {[id number]}
[2021-09-25] MEDS ORDERED: LIDOCAINE 2% MPF LOCAL 5 ML VIAL INFIL ONE (15:23)
[2021-09-25] MEDS ORDERED: PROPOFOL IV EMULSION 10 MG/ML 20 ML VIAL IV ONE (15:23)
--- NOTE | 2021-09-25 16:07 | Electrocardiogram Report ---
Test Reason : Blood Pressure : / mmHG Vent. Rate : 080 BPM Atrial Rate : 080 BPM P-R Int : 000 ms QRS Dur : 042 ms QT Int : 410 ms P-R-T Axes : 000 067 067 degrees QTc Int : 472 ms Poor data quality, interpretation may be adversely affected Sinus rhythm Low voltage QRS Possible Septal infarct , age undetermined Nonspecific T wave abnormality Abnormal ECG When compared with ECG of 24-SEP-2021 14:04, Premature atrial complexes are no longer Present Confirmed by Lico Ramirez ([id number]) on 09/25/2021 4:06:54 PM Referred By: REFERRED SELF Confirmed By:Lico Ramirez
[2021-09-25] MEDS: metroNIDAZOLE 500 MG TAB PO SCH ×2 (16:18→23:08)
--- NOTE | 2021-09-25 18:35 | Anesthesiology Progress Note ---
Date of Service September 25, 2021 Anesthesia Post Procedure Vital Signs Vital Signs: Temp Pulse Pulse Pulse Resp BP BP 09/25/21 18:31 36.4 C L 74 18 95/59 L 09/25/21 15:58 94 H 20 96/60 L 09/25/21 15:44 82 18 99/60 L 09/25/21 15:29 81 16 96/58 L 09/25/21 13:32 36.4 C L 79 18 102/63 09/25/21 11:10 36.6 C 77 16 100/70 09/25/21 07:45 36.6 C 80 17 100/70 09/25/21 04:55 36.6 C 77 18 99/63 L 09/24/21 23:00 92 H 09/24/21 22:54 36.4 C L 89 18 110/69 09/24/21 21:27 36.7 C 78 18 113/93 09/24/21 21:25 36.7 C 73 18 113/93 09/24/21 21:19 36.7 C 72 18 113/93 09/24/21 19:00 86 20 93/60 L Pulse Ox Pulse Ox 09/25/21 18:31 99 09/25/21 15:58 94 09/25/21 15:44 94 09/25/21 15:29 94 09/25/21 13:32 100 09/25/21 11:10 100 09/25/21 07:45 100 09/25/21 04:55 100 09/24/21 23:00 09/24/21 22:54 95 09/24/21 21:27 100 09/24/21 21:25 100 100 09/24/21 21:19 100 09/24/21 19:00 Transfer of Care Handoff Completed per policy Notes Mental Status: alert / awake / arousable Patient Amnestic to Procedure: Yes Nausea / Vomiting: adequately controlled Pain: adequately controlled Airway Patency, RR, SpO2: stable & adequate BP & HR: stable & adequate Hydration State: stable & adequate Anesthetic Complications: no major complications apparent
[2021-09-26] MEDS: LACTATED RINGER'S 1,000 ML IV SCH ×2 (01:08→07:50)
[2021-09-26] MEDS: PANTOprazole 40 MG in DEXTROSE 5% 100 ML IV SCH ×3 (04:11→08:03)
[2021-09-26 07:16] LABS: Hematocrit (blood only) 27.2 % (34.1-44.9); Mean Corpuscular Hemoglobin 33.2 pg (25.0-34.0); Mean Corpuscular Hgb Conc 33.1 g/dL (32.0-36.0); Mean Corpuscular Volume 100.4 fL (80.0-100.0); Mean Platelet Volume 9.6 fL (9.4-12.3); Platelet Count 144 K/uL (130-400); RDW Coefficient of Variation 15.9 % (11.5-14.5); RDW Standard Deviation 58.4 fL (36.4-46.3); Red Blood Count 2.71 M/uL (3.93-5.22); White Blood Count 3.09 K/ul (4.8-10.8)
[2021-09-26 07:36] LABS: Albumin Globulin Ratio 1.3 (0.9-2); Albumin Level 2.5 gm/dl (3.4-5.0); BUN Creatinine Ratio 11.9 (10-20); Bilirubin,Total 0.8 mg/dl (0.2-1.0); Calcium 7.5 mg/dl (8.5-10.1); Creatinine Clr Calc Pharmacy 87.5 ml/min; Est GFR (African American) 108.4 ml/min; Est GFR (Non-African American) 93.5 ml/min; Total Protein 4.5 gm/dl (6.0-8.3)
[2021-09-26] MEDS ORDERED: FLUCONAZOLE 100 MG TAB PO ONE (09:00)
[2021-09-26] MEDS ORDERED: CYANOCOBALAMIN 1000 MCG/ML VIAL IM SCH (09:00)
[2021-09-26] MEDS: metroNIDAZOLE 500 MG TAB PO SCH ×2 (09:10→16:43)
[2021-09-26] MEDS: POTASSIUM CHLORIDE CRTAB 20 MEQ TABCR PO SCH ×3 (09:11→20:14)
[2021-09-26] MEDS: BISMUTH SUBSALICYLATE 262 MG CHEW PO SCH ×4 (09:14→20:15)
[2021-09-26] MEDS: FOLIC ACID 1 MG TAB PO SCH (09:15)
[2021-09-26] MEDS: PANTOprazole 40 MG in SYRINGE 0 ML IV SCH ×2 (09:15→20:15)
[2021-09-26] MEDS: DOXYCYCLINE HYCLATE 100 MG in DEXTROSE 5% 100 ML IV SCH ×2 (09:15→20:16)
[2021-09-26] MEDS: THIAMINE HCL 100 MG TAB PO SCH (09:16)
--- NOTE | 2021-09-26 10:10 | Hospitalist Progress Note ---
Date of Service September 26, 2021 Assessment & Plan (1) GI bleed: Plan: - Known gastric ulcer as seen on EGD from 09/02. - Reports multiple, large BMs with bright red blood x 10 days. Hgb 11.1, baseline seems to be 13. Hemoccult + in ED. - Will continue to follow H/H. - PPI drip changed to 40mg IV BID - GI consulted, underwent EGD on 09/25, nonbleeding gastric ulcer and esophagitis - Advance diet to regular for lunch (2) Acute blood loss anemia: Plan: - Hgb continues to steadily downtrend, 11.1-->10.3-->9.0 - No further BRBPR or melena - Trend H&H, repeat this afternoon at 1600 - Cap fluids as there could be a dilutional component to the drop in H&H (3) Hypokalemia: Plan: - Replacement ordered yesterday for low K - Persistently low K+ of 3.0 this morning - Additional replacement ordered - Repeat chemistry panel in AM (4) Esophagitis: Plan: - GI recommended course of Fluconazole for leah esophagitis 400mg x1 and then 200mg daily to complete 14 day course (5) Weakness: Plan: - Multifactorial, in setting of low magnesium, multiple loose, bloody BMs daily, reported poor p.o. intake in the setting of daily alcohol use. - Continue IV fluids, monitor renal function electrolytes. - Her hemoglobin will be monitored as below and evaluate for possible GI bleed which may be contributing to weakness. - PT/OT eval-recommend home with home therapy (6) Vitamin B12 deficiency: Plan: - Supplementation has been ordered, Cyanocobalamin 1000mcg IM x1 - Start oral supplementation in AM (7) H pylori ulcer: Plan: - Started on quadruple therapy--Pepto-Bismol, doxycycline, Flagyl, Protonix. Weakness and loose, bloody BMs since onset. Stopped treatment prematurely on day #10 (09/21) - Resume treatment regimen, as it is more likely alcohol consumption while on antibiotics, specifically Flagyl, is causing her side effects. - Complete total 14 day course (8) Alcohol use: Plan: - Patient states she drinks 1 glass of wine/night. Upon review of previous records from 2016, patient has had severe withdrawal including visual and auditory hallucinations and DTs. Wernicke encephalopathy is noted on her chart. There are not more recent hospitalizations or records to indicate current alcoh ol use. - Will place on AWSS with Ativan as needed and will closely monitor for signs of withdrawal and need to increase management of withdrawal. - Continue gabapentin 300 mg HS. - IVF with p.o. thiamine and folate supplementation. (9) Leukopenia: Plan: - 3.39, was around this level in August 2020 but more recently this past Apr was 6.4. - On tamoxifen which can cause low WBC count. - Continue to follow on AM labs. (10) Hypomagnesemia: Plan: - 1.4, in setting of PPI use, poor p.o. intake, daily alcohol use. - Replaced/resolved (11) History of breast cancer: Plan: - S/p right lumpectomy, s/p partial left mastectomy - Continue tamoxifen. (12) Wheelchair bound: Plan: - Apparently due to a femur fracture that healed incorrectly, patient is wheelchair bound at home but uses a walker to ambulate in public. Plan: Make full admit. Interventions as outlined above. Transition off of telemetry to med/surg. Repeat labs in AM. Plan to be d/w Dr. Jenny Wilder. Admission and Anticipated Discharge Date Admission Date: September 24, 2021 Subjective Patient seen on daily rounds this morning. Resting in bed, had EGD done yesterday which showed a nonbleeding ulcer in stomach and esophagitis. She denies chest pain, dyspnea, n/v, abd pain, fever/chills. Tolerating clear liquids. No further diarrhea this morning and not passing BRB or melena. Review of Systems Review of Systems: All systems reviewed and are unremarkable except as noted in HPI and below. Denies fever, chills, fatigue, headache, nasal congestion, sore throat, cough, chest pain, shortness of breath, palpitations, orthopnea, PND, abdominal pain, n/v, constipation, dysuria, hematuria, frequency, back pain, joint pain or swelling, easy bruising or bleeding, skin lesions or rashes. Physical Exam Physical Exam: GENERAL: 70 yo Well-developed, well-nourished WF. NAD. LUNGS: Clear to auscultation bilaterally. No W/R/R. CARDIOVASCULAR: Regular rate and rhythm. ABDOMEN: Soft, non-tender and non-distended. BS normoactive x 4 quad. EXTREMITIES: No edema. Non-tender. Peripheral pulses +2/4. NEUROLOGIC: A&O x3. Nonfocal PSYCHIATRIC: Cooperative. Appropriate mood and affect. SKIN: Warm, dry, intact. No rashes or lesions. Results & Data Results & Data ([facility]) Vital Signs (Past 12 Hours) Vital Signs Temp Pulse Pulse Pulse Resp BP Pulse Ox 09/26/21 07:29 81 09/26/21 07:17 37.1 C 75 16 117/75 98 09/26/21 04:28 36.8 C 84 18 90/66 L 97 09/26/21 00:00 09/25/21 23:15 36.6 C 78 18 112/71 99 09/25/21 22:20 103 H Pulse Ox 09/26/21 07:29 09/26/21 07:17 09/26/21 04:28 09/26/21 00:00 99 09/25/21 23:15 09/25/21 22:20 Laboratory Results 09/26/21 06:34 09/26/21 06:34 PG Care Time/CCT Total # of Minutes Spent Total Time Spent with Patient: Total time spent is greater than 50% in coordination of care (as documented) at patient's floor/unit and/or counseling patient: Coding Level of Care Code 16485 Subseq Hosp Care Lvl 3 Diagnoses Weakness R53.1 H pylori ulcer K27.9; B96.81 GI bleed K92.2 GI bleed type/associated pathology: unspecified gastrointestinal hemorrhage type Alcohol use Z72.89 Leukopenia D72.819 Hypomagnesemia E83.42 History of breast cancer Z85.3 Wheelchair bound Z99.3 Acute blood loss anemia D62 Vitamin B12 deficiency E53.8 Hypokalemia E87.6 Esophagitis K20.90 (1) GI bleed GI bleed type/associated pathology: unspecified gastrointestinal hemorrhage type Qualified Code(s): K92.2 - Gastrointestinal hemorrhage, unspecified
--- NOTE | 2021-09-26 12:29 | Electrocardiogram Report ---
Test Reason : Blood Pressure : / mmHG Vent. Rate : 084 BPM Atrial Rate : 084 BPM P-R Int : 140 ms QRS Dur : 058 ms QT Int : 422 ms P-R-T Axes : 019 088 079 degrees QTc Int : 498 ms Normal sinus rhythm Low voltage QRS Nonspecific ST and T wave abnormality Abnormal ECG When compared with ECG of 24-SEP-2021 16:31, Nonspecific T wave abnormality, worse in Anterior leads Confirmed by Dimitry Charles ([id number]) on 09/26/2021 12:29:30 PM Referred By: REFERRED SELF Confirmed By:Trevin Charles
[2021-09-26 16:21] LABS: Hemoglobin 10.1 g/dl (12.0-16.0)
[2021-09-26] MEDS: GABAPENTIN 300 MG CAP PO SCH (20:15)
[2021-09-26 20:23] LABS: Adenovirus F 40/41 PCR Not Detected (NotDetected); Astrovirus PCR Not Detected (NotDetected); Campylobacter PCR Not Detected (NotDetected); Clostridium diff Toxin A/B PCR Not Detected (NotDetected); Cryptosporidium PCR Not Detected (NotDetected); Cyclospora cayetanensis PCR Not Detected (NotDetected); Entamoeba histolytica PCR Not Detected (NotDetected); Enteroaggregative E.coli(EAEC) Not Detected (NotDetected); Enteropathogenic E.coli (EPEC) Not Detected (NotDetected); Enterotoxigenic E.coli (ETEC) Not Detected (NotDetected); Giardia lamblia PCR Not Detected (NotDetected); Norovirus GI/GII PCR Not Detected (NotDetected); Plesiomonas shigelloides PCR Not Detected (NotDetected); Rotavirus A PCR Not Detected (NotDetected); Salmonella PCR Not Detected (NotDetected); Sapovirus PCR Not Detected (NotDetected); Shiga-like Toxin E.coli (STEC) Not Detected (NotDetected); Shigella/Enteroinvasive E.coli Not Detected (NotDetected); Vibrio cholerae PCR Not Detected (NotDetected); Vibrio species PCR Not Detected (NotDetected); Yersinia enterocolitica PCR Not Detected (NotDetected)
[2021-09-27] MEDS: metroNIDAZOLE 500 MG TAB PO SCH ×2 (01:03→07:59)
[2021-09-27 06:49] LABS: Hematocrit (blood only) 27.9 % (34.1-44.9); Hemoglobin 9.1 g/dl (12.0-16.0); Mean Corpuscular Hemoglobin 33.7 pg (25.0-34.0); Mean Corpuscular Hgb Conc 32.6 g/dL (32.0-36.0); Mean Corpuscular Volume 103.3 fL (80.0-100.0); Mean Platelet Volume 9.7 fL (9.4-12.3); Platelet Count 148 K/uL (130-400); RDW Coefficient of Variation 16.3 % (11.5-14.5); RDW Standard Deviation 61.9 fL (36.4-46.3); White Blood Count 3.63 K/ul (4.8-10.8)
[2021-09-27 07:16] LABS: BUN Creatinine Ratio 7.2 (10-20); Calcium 7.9 mg/dl (8.5-10.1); Creatinine Clr Calc Pharmacy 74.8 ml/min; Est GFR (African American) 102.9 ml/min; Est GFR (Non-African American) 88.8 ml/min; Magnesium 1.5 mg/dl (1.7-2.4); Potassium 4.3 mmol/L (3.5-5.1)
[2021-09-27] MEDS: PANTOprazole 40 MG in SYRINGE 0 ML IV SCH (07:57)
[2021-09-27] MEDS: THIAMINE HCL 100 MG TAB PO SCH (07:58)
[2021-09-27] MEDS: DOXYCYCLINE HYCLATE 100 MG in DEXTROSE 5% 100 ML IV SCH (07:58)
[2021-09-27] MEDS: TAMOXIFEN CITRATE 10 MG TABLET PO SCH (07:58)
[2021-09-27] MEDS: FOLIC ACID 1 MG TAB PO SCH (07:59)
[2021-09-27] MEDS: BISMUTH SUBSALICYLATE 262 MG CHEW PO SCH ×2 (07:59→12:33)
[2021-09-27] MEDS ORDERED: CYANOCOBALAMIN (B-12) 500 MCG TABLET PO SCH (09:00)
[2021-09-27] MEDS ORDERED: FLUCONAZOLE 100 MG TAB PO SCH (09:00)
[2021-09-27] MEDS: MAGNESIUM SULFATE / D5W 1 GM/100 ML BAG IV SCH ×2 (09:34→11:19)
--- NOTE | 2021-09-27 12:09 | Discharge Summary ---
Date of Service September 27, 2021 Admission HPI Per Admitting Provider Cristiana Ramos is a 70-year-old female with past medical history of breast cancer s/p mastectomy on tamoxifen, PUD due to H. pylori, anxiety, and alcohol abuse who presents today with concerns for weakness and bloody BMs for the past 10 days. She ravi an EGD done 09/[address] Sanders for unintentional weight loss, a nonbleeding gastric ulcer was identified and later confirmed h pylori infection, therefore patient was started on quadruple therapy w/ Pepto Bismol, doxycycline, Flagyl, and Protonix. She took this as prescribed, however from the first day on them she became weak on her feet and has been having multiple, explosive BMs daily with bright red blood in them. She lives alone and feels unable to continue caring for herself under these circumstances. In Ed, she is borderline hypotensive, otherwise VS within normal limits and have been stable. Labs remarkable for WBC 3.39, Hgb 11.1, magnesium 1.4, to be 1.4, AST 66. Hemoccult positive. Principal Diagnosis 1. Generalized debility/weakness-multifactorial 2. Gastric Ulcer d/t h. pylori (nonbleeding) 3. Rectal bleeding-suspect hemorrhoids 4. Anemia 5. Vitamin B12 deficiency 6. Electrolyte imbalance-hypokalemia/hypomagnesemia (treated) 7. Esophagitis Discharge Exam GENERAL: 70 yo Well-developed, well-nourished WF. NAD. LUNGS: Clear to auscultation bilaterally. No W/R/R. CARDIOVASCULAR: Regular rate and rhythm. ABDOMEN: Soft, non-tender and non-distended. BS normoactive x 4 quad. EXTREMITIES: No edema. Non-tender. Peripheral pulses +2/4. NEUROLOGIC: A&O x3. Nonfocal PSYCHIATRIC: Cooperative. Appropriate mood and affect. SKIN: Warm, dry, intact. No rashes or lesions. Discharge Data Allergies Allergy/AdvReac Type Severity Reaction Status Date / Time bee venom protein (honey bee) Allergy Severe ANAPHYLAXIS Verified 09/25/21 13:28 adhesive Allergy Intermediate HIVES Verified 09/25/21 13:28 latex Allergy Intermediate Hives Verified 09/25/21 13:28 Consultations 09/24/21 16:43 ED Decision to Admit Stat 09/25/21 08:43 Consult Gastroenterology Routine Procedures Performed Operation Date: 09/25/21 15:30 Actual Procedures p Esophagogastroduodenoscopy - Ankush Rodriguez MD Hospital Course (1) GI bleed: - Known gastric ulcer as seen on EGD from 09/02. - Reports multiple, large BMs with bright red blood x 10 days. Hgb 11.1, baseline seems to be 13. Hemoccult + in ED. - Will continue to follow H/H. - PPI drip changed to 40mg IV BID - GI consulted, underwent EGD on 09/25, nonbleeding gastric ulcer again seen and esophagitis - Advance diet to regular for lunch - Suspect rectal bleeding from irritated hemorrhoids in setting of frequent stooling which has now resolved (2) Acute blood loss anemia: - Suspect mild drop with some blood loss + dilutional effect - No further BRBPR or melena - Trend H&H, repeat this afternoon at 1600 - Cap fluids as there could be a dilutional component to the drop in H&H (3) Hypokalemia: - Replacement ordered yesterday for low K - Persistently low K+ of 3.0 this morning - Additional replacement ordered 09/26 - Normalized to 4.3 on this AMs labs (4) Esophagitis: - GI recommended course of Fluconazole for leah esophagitis 400mg x1 and then 200mg daily to complete 14 day course (5) Weakness: - Multifactorial, in setting of low magnesium, multiple loose, bloody BMs daily, reported poor p.o. intake in the setting of daily alcohol use. - Continue IV fluids, monitor renal function electrolytes. - Her hemoglobin will be monitored as below and evaluate for possible GI bleed which may be contributing to weakness. - PT/OT eval-recommend home with home therapy (6) Vitamin B12 deficiency: - Supplementation has been ordered, Cyanocobalamin 1000mcg IM x1 - Started on oral supplementation this AM-rx provided (7) H pylori ulcer: - Started on quadruple therapy--Pepto-Bismol, doxycycline, Flagyl, Protonix. Weakness and loose, bloody BMs since onset. Stopped treatment prematurely on day #10 (09/21) - Resume treatment regimen, as it is more likely alcohol consumption while on antibiotics, specifically Flagyl, is causing her side effects. - Complete total 14 day course (last day of treatment 09/28) - Reiterated importance of NO ALCOHOL while on Flagyl (8) Alcohol use: - Patient states she drinks 1 glass of wine/night. Upon review of previous records from 2016, patient has had severe withdrawal including visual and auditory hallucinations and DTs. Wernicke encephalopathy is noted on her chart. There are not more recent hospitalizations or records to indicate current alcohol use. - Will place on AWSS with Ativan as needed and will closely monitor for signs of withdrawal and need to increase management of withdrawal. - Continue gabapentin 300 mg HS. - Received p.o. thiamine and folate supplementation. - No concern for withdrawal while in house (9) Leukopenia: - 3.39, was around this level in August 2020 but more recently this past Apr was 6.4. - On tamoxifen which can cause low WBC count. - Remained stable throughout her stay (10) Hypomagnesemia: - 1.4, in setting of PPI use, poor p.o. intake, daily alcohol use. - Replaced/resolved but back down again on 09/27 labs, replacement ordered - Needs to increase dietary magnesium and may need additional daily supplement ation (11) History of breast cancer: - S/p right lumpectomy, s/p partial left mastectomy - Continue tamoxifen. (12) Wheelchair bound: - Apparently due to a femur fracture that healed incorrectly, patient is wheelchair bound at home but uses a walker to ambulate in public. At this time, pt is medically and hemodynamically stable for discharge. She has had no further episodes of rectal bleeding or diarrhea. She is tolerating oral intake. No nausea or vomiting. No abd pain. She is agreeable to home health referral which case management has been consulted to assist in arranging. She has an appt to follow up with GI as outpatient and instructed to keep this appointment. She has been advised to f/u with pcp within 1 week of discharge. Plan has been d/w Dr. Wilder who has also seen and evaluated this patient prior to discharge and is in agreement with the aforementioned. Total Time Total Time Spent Total Time Spent (In Minutes): >30 minutes Discharge Plan Discharge Items Patient Disposition: Home - Home Health Services Reason For Visit: WEAKNESS, ? GI BLEED Discharge Diagnosis: Weakness, inflamed esophagus, anemia Activity: Resume your previous activity Non-emergency contact: Primary Care Provider and [employer] Call non-emergency contact if: you have any medication questions and your symptoms worsen Follow-up/Referrals: Nubia Pratt MD [Primary Care Provider] - Diet: Regular Addtl Attending Provider Instructions: You were hospitalized due to weakness, diarrhea, and passing bright red blood from your rectum. This was most likely due to consuming alcohol while taking Flagyl (Metronidazole) and the frequent stooling exacerbated/irritated hemorrhoids leading to passing blood. You were seen by gastroenterology who performed an EGD. This found that you had significant inflammation in your esophagus caused by yeast so you have been started on antifungals (Fluconazole) for this. You will need to complete a 14 day course of this to treat it. Please complete the course, you should have no pills left over. A script has been sent to your pharmacy and your next dose is due on 09/28/21. Please complete the course of medications for your gastric ulcer due to helicobacter pylori which includes pepto-bismol, doxycycline, flagyl, and protonix. When you complete the course on 09/28, you will only need to continue Protonix. Keep scheduled follow up with gastroenterology has scheduled. You did have a drop in your blood count while you were here which prompted a work up that demonstrated that you are Vitamin B12 deficient. You will be prescribed Vitamin B12 supplementation (Cyanocobalamin) which you will take once a day. You should have your levels rechecked in 3 months which can be done by your primary care provider. It is recommended that you follow up with your family healthcare provider within 1 week of discharge. Therapy saw you during your stay and recommended that you have home physical and occupation at home. Case management assisted in getting this set up for you and the agency of your choosing will follow up with you in your home. If you have any questions after you are discharged, feel free to contact the nonemergency number listed on your discharge paperwork. In the event of a medical emergency, call 911. Pending Studies at Discharge: No Stand-Alone Forms: My DoApp, Smoking Cessation Medications and DC Order Prescriptions: New fluconazole 100 mg Tablet 200 mg PO QAM Qty: 12 RF: 0 cyanocobalamin (vitamin B-12) 500 mcg Tablet 1,000 mcg PO QAM Qty: 30 RF: 0 Continued doxycycline hyclate 100 mg capsule 100 mg PO BID Qty: 28 RF: 0 metronidazole 250 mg tablet 250 mg PO QID Qty: 56 RF: 0 pantoprazole 40 mg tablet,delayed release (DR/EC) 40 mg PO BID Qty: 60 RF: 5 bismuth subsalicylate 262 mg tablet,chewable 2 tab PO QID 14 Days Qty: 112 RF: 0 gabapentin 300 mg capsule 300 mg PO HS RF: 0 tamoxifen 10 mg Tablet 10 mg PO Q2D RF: 0 epinephrine 0.3 mg/0.3 mL auto-injector 0.3 mg IM UD PRN (Reason: Allergic Reaction) RF: 0 hydroxyzine HCl 10 mg Tablet 10 mg PO DAILY PRN (Reason: Anxiety) RF: 0 Discharge Orders: Discharge Order (Routine); Ordered 09/27/21 Ordered By: Donna Saavedra Admission Data Admit Date/Time: 09/26/21 10:09 Attending Provider: Abelino Wilder Admit Provider: Dustin Navarro Primary Care Provider: Nubia Pratt Other Providers: Abelino Wilder ; Donna Saavedra ; Dustin Navarro ; Juancarlos Sanders ; Cami Hood ; Birdie Hudson ; Ankush Rodriguez ; Edy Diego ; [facility] Other Interventions: Discharge Summary Assessment (RN) Last Done: 09/27/21 12:39 Supervising Physician Co-Signing Physician Notes I supervised Donna Saavedra PA-C on the care of this patient. I interviewed and examined the patient independently of her. The plan is as written in her note except for any following changes/exceptions: None Doing well today. Feeling much better. No bleeding and hgb stable. EGD showed gastritis. Will finish H. pylori treatment over the course of a day or so. Coding Level of Care Code D/C DAY MANAGEMENT >30 MINS Diagnoses GI bleed K92.2 GI bleed type/associated pathology: unspecified gastrointestinal hemorrhage type Acute blood loss anemia D62 Hypokalemia E87.6 Esophagitis K20.90 Weakness R53.1 Vitamin B12 deficiency E53.8 H pylori ulcer K27.9; B96.81 Alcohol use Z72.89 Leukopenia D72.819 Hypomagnesemia E83.42 History of breast cancer Z85.3 Wheelchair bound Z99.3
== END 2021-09-27 14:08 | disposition home health service (06) ==
LOC: EDINP 13:38 → ED 13:38 → SUATTDRO 18:56 → 2W 19:57

== ENCOUNTER 2021-10-13 15:43 | Inpatient (IN) ==
[2021-10-13] MEDS ORDERED: SODIUM CHLORIDE 0.9% 500 ML IV SCH (16:00)
--- NOTE | 2021-10-13 16:07 | Emergency Department Note ---
Impression & Plan AMS (altered mental status), Alcohol use, Weakness, Alcohol abuse ED Provider Note NAME: RAMÍREZ LARA AGE: 70 SEX: F : 1950 ARRIVES VIA: Ambulance INFORMANT: Patient ED PROVIDER(S): Mio Davila DO CHIEF COMPLAINT: fall HPI: Patient is a 70-year-old female with a past medical history of esophagitis, leukopenia, weakness, who presents to the ER as she has a history of ambulatory dysfunction secondary to an old femur fracture. She will intermittently use a walker but mainly uses a wheelchair to get around. Her bathroom was rearranged and she was trying to get to her wheelchair but was unsuccessful and fell to the ground. Denies any head or neck pain. No chest pain or shortness of breath. No nausea, vomiting, or diarrhea. This occurred around 0730. She sat there until the police came about half hour ago to an hour ago. When they got her up she then felt a little lightheaded. She had no symptoms prior to the fall. Particular notes that she has been getting progressively more confused for the past 2 to 3 days. She has been hallucinating intermittently as well. He questions if she has stopped drinking and that is why she is becoming more confused. ROS: See above HPI for pertinent positives & negatives. A total of 10 systems reviewed and were otherwise negative. PAST MEDICAL HISTORY:See Below PAST SURGICAL HISTORY:See Below FAMILY HISTORY:See Below SOCIAL HISTORY:See Below HOME MEDICATIONS:See Below ALLERGIES:See Below VITALS:See Below PHYSICAL EXAMINATION: GENERAL: Sitting up in bed, alert, well appearing, well nourished, no distress, non-toxic EYE EXAM: normal conjunctiva. PERRL and EOM's grossly intact. HEAD: Normal cephalic, atraumatic OROPHARYNX: no exudate, no erythema, lips, buccal mucosa, and tongue normal and mucous membranes are moist NECK: supple, no nuchal rigidity, no adenopathy, non-tender LUNGS: Clear to auscultation. Normal chest wall mechanics HEART: no murmurs, S1 normal and S2 normal ABDOMEN: abdomen soft, non-tender, normo-active bowel sounds, no masses, no rebound or guarding. BACK: Back is symmetrical on inspection and there is no deformity, no midline tenderness, no CVA tenderness. SKIN: no rashes and no bruising UPPER EXTREMITIES: upper extremities are grossly normal. LOWER EXTREMITIES: No pitting edema. NEURO EXAM: Normal sensorium, cranial nerves II-XII grossly intact, normal speech, no gross weakness of arms, no gross weakness of legs. No drift. Finger to nose intact. Gross sensation intact. MEDICAL DECISION MAKING: Patient is a 70-year-old female who presents the ER for the boasting complaint. IV was established blood work was obtained. Labs show a leukocytosis. Mild anemia 10.9 which is actually improved from previous with her baseline being around 9. BMP was unremarkable. T bili slightly up at 1.3. LFTs were unremarkable. Troponin negative. TSH was elevated 5.7. UA does show ketones. Was contaminated with multiple epithelial cells. Alcohol was negative. COVID was negative. CT head was negative. Chest x-ray was unremarkable. Patient was given IV fluids. On reevaluation she was intermittently confused. She does live at home alone and has a cook frozen dessert, and for 5 days during the day. He feels comfortable with her going home consequently discussed with hospitalist for further evaluation. Triage Nursing notes reviewed. Limited review of prior medical records performed Vital Signs: reviewed and remarkable for no significant abnormalities Differential diagnosis: Differential diagnoses include major intracranial, cervical, spinal, thoracic, abdominal, pelvic and neurologic injury. Fracture, contusion, sprain, strain, laceration, abrasions included as well. ER treatment provided: See below Diagnostics interpreted by me: ECG: Sinus rhythm with a terrible baseline Rate 80 No PVCs Unable to discern ST segment changes Cardiac Monitoring: An order was placed for continuous cardiac monitoring. The monitor shows a rate of 82 with sinus rhythm. Laboratory studies: As stated above and show below. 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 pylori infection History of COVID-19 diagnosed 04/15/20 [place] [facility] [place]--diagnosed prior to a scheduled sx History of COVID-19 asymptomatic, positive March 2020 (tested prior to surgery) History of facial trauma History of femur fracture right side--per pt did not heal properly and reason for wheelchair History of right breast cancer diagnosed 03/17/20--sx/oral chemo Loss of appetite Visual hallucinations d/t alcohol use Weight loss, unintentional Wernickes encephalopathy (04/12/14) Wheelchair bound Surgical History History of ankle surgery right History of bilateral cataract extraction History of blepharoplasty bilateral History of colonoscopy History of endometrial ablation History of left breast biopsy History of open reduction and internal fixation (ORIF) procedure right femur--hardware in place History of partial mastectomy of left breast sentinel lymph node removal 06/17/2016 History of tooth extraction History of total right knee replacement (TKR) x3 History of wisdom tooth extraction S/P lumpectomy, right breast Family History Other No family history of adverse response to anesthesia Social History Smoking Status: Never smoker Second Hand Exposure: No; Hx Alcohol Use: Yes Alcohol type: wine Hx Substance Use: No Preferred Language: Latvian Communication Ability: Effective Inductor Tester Required: No Beliefs That Will Affect Care: None marital status: Legally Current Living Situation: Alone Current Living Situation Comment: lives alone, does not live with . Caregiver lives 10 min away Feels Safe at Home: Yes Sunscreen Use: No Assistive Devices: Walker and Wheelchair Allergies Allergies Allergy/AdvReac Type Severity Reaction Status Date / Time bee venom protein (honey bee) Allergy Severe ANAPHYLAXIS Verified 10/13/21 18:36 adhesive Allergy Intermediate HIVES Verified 10/13/21 18:36 latex Allergy Intermediate Hives Verified 10/13/21 18:36 metronidazole [From Flagyl] AdvReac Intermediate CAUSES Verified 10/13/21 18:36 YEAST INFECTIONS Home Meds Home Medications Medication Instructions Recorded Confirmed gabapentin 300 mg capsule 300 mg PO HS 12/14/19 10/13/21 hydroxyzine HCl 10 mg tablet 10 mg PO DAILY PRN Anxiety 08/25/20 10/13/21 tamoxifen 10 mg tablet 10 mg PO Q2D 08/31/21 10/13/21 epinephrine 0.3 mg/0.3 mL 0.3 mg IM UD PRN Allergic Reaction 09/24/21 10/13/21 injection, auto-injector bismuth subsalicylate 262 mg 2 tab PO QID PRN UPSET STOMACH 10/13/21 10/13/21 chewable tablet Previous Rx's Medication Instructions Recorded pantoprazole 40 mg tablet,delayed 40 mg PO BID #60 tabs 09/04/21 release cyanocobalamin (vitamin B-12) 500 1,000 mcg PO QAM #30 tabs 09/27/21 mcg tablet Results & Data (ED) Vital Signs Vital Signs - 24 hr 10/13/21 15:54 10/13/21 16:11 10/13/21 17:55 Temperature 36.4 C L Temperature Source Oral Pulse Rate 93 H 98 H Pulse Rate [Radial] 98 H Pulse Rhythm Regular Regular Pulse Rhythm [Radial] Regular Pulse Strength Normal Pulse Strength [Radial] Normal Respiratory Rate 17 17 17 Respiratory Effort / Characteristics Non-Labored Spontaneous Non-Labored Spontaneous Respiratory Depth Normal Normal Respiratory Pattern Regular Regular Blood Pressure 114/70 Blood Pressure [Right Arm] 166/78 H Blood Pressure Mean 84 Blood Pressure Mean [Right Arm] 107 Blood Pressure Position Sitting Blood Pressure Position [Right Arm] Sitting Pulse Oximetry 100 98 98 Oxygen Delivery Method Room Air Room Air Room Air Sepsis Recent Fever Within 48 Hours No Sepsis New/Unexplained Change in Mental Status N/A Sepsis Action Taken by Nursing No Action Required 10/13/21 19:30 10/13/21 19:56 Temperature Temperature Source Pulse Rate 75 Pulse Rate [Radial] 86 Pulse Rhythm Pulse Rhythm [Radial] Irregular Pulse Strength Pulse Strength [Radial] Respiratory Rate 15 16 Respiratory Effort / Characteristics Respiratory Depth Respiratory Pattern Blood Pressure Blood Pressure [Right Arm] 130/68 Blood Pressure Mean Blood Pressure Mean [Right Arm] 88 Blood Pressure Position Blood Pressure Position [Right Arm] Pulse Oximetry Oxygen Delivery Method Sepsis Recent Fever Within 48 Hours Sepsis New/Unexplained Change in Mental Status Sepsis Action Taken by Nursing Laboratory Data Result diagrams: 10/13/21 16:45 10/13/21 16:45 Lab Results 10/13/21 10/13/21 10/13/21 Range/Units 16:45 16:45 16:45 WBC 4.82 (4.8-10.8) K/ul RBC 3.17 L (3.93-5.22) M/uL Hgb 10.9 L (12.0-16.0) g/dl Hct 33.4 L (34.1-44.9) % MCV 105.4 H (80.0-100.0) fL MCH 34.4 H (25.0-34.0) pg MCHC 32.6 (32.0-36.0) g/dL RDW Std Deviation 67.9 H (36.4-46.3) fL RDW Coeff of Kulwinder 17.5 H (11.5-14.5) % Plt Count 386 (130-400) K/uL MPV 9.3 L (9.4-12.3) fL Immature Gran % (Auto) 0.6 % Neut % (Auto) 64.4 % Lymph % (Auto) 24.9 % [place] % (Auto) 9.3 % Eos % (Auto) 0.6 % Baso % (Auto) 0.2 % Neut # (Auto) 3.10 (1.4-6.5) K/uL Lymph # (Auto) 1.20 (1.2-3.4) K/uL [place] # (Auto) 0.45 (0.24-0.82) K/uL Eos # (Auto) 0.03 (0-0.50) K/uL Baso # (Auto) 0.01 (0-0.2) K/uL Immature Gran # (Auto) 0.03 H (0.00-0.02) K/uL Sodium 138 (136-145) mmol/L Potassium 3.9 (3.5-5.1) mmol/L Chloride 101 (98-107) mmol/L Carbon Dioxide 22 (21-32) mmol/L Anion Gap 15 H (3-11) BUN 18 (6-23) mg/dl Creatinine 0.59 L (0.6-1.2) mg/dl Est Cr Clr Drug Dosing 84.5 ml/min Est GFR ( Amer) 108.4 ml/min Est GFR (Non-Af Amer) 93.5 ml/min BUN/Creatinine Ratio 30.5 H (10-20) Glucose 88 (70-99(Fasting)) mg/dl Calcium 8.5 (8.5-10.1) mg/dl Total Bilirubin 1.3 H (0.2-1.0) mg/dl AST 42 H (13-39) U/L ALT 23 (7-52) U/L Alkaline Phosphatase 78 (34-104) U/L Total Creatine Kinase 61 Cancelled (26-192) U/L Troponin I High Sens 8.2 (0-14) pg/ml Total Protein 6.7 (6.0-8.3) gm/dl Albumin 3.4 (3.4-5.0) gm/dl Globulin 3.3 (2.5-4.0) gm/dl Albumin/Globulin Ratio 1.0 (0.9-2) TSH (0.300-4.500) uIu/ml Free T4 (0.61-1.60) ng/dl Urine Color Urine Appearance (Clear) Urine pH (4.5-7.5) Ur Specific [place] (1.000-1.030) Urine Protein (Negative) Urine Glucose (UA) (Negative) Urine Ketones (Negative) Urine Blood (Negative) Urine Nitrite (Negative) Urine Bilirubin (Negative) Urine Urobilinogen (Negative) Ur Leukocyte Esterase (Negative) Urine WBC (Auto) (0-5) /hpf Urine RBC (Auto) (0-4) /hpf U Hyaline Cast (Auto) (0-5) /lpf U Epithel Cells (Auto) (0-5) /lpf Urine Bacteria (Auto) (Negative) Calcium Oxalate Crystal (None Prsent) Urine Mucus (None Prsent) Urine Yeast Ethyl Alcohol mg/dL (<10.0) mg/dl SARS-CoV-2, RNA, NAAT (NEGATIVE) 10/13/21 10/13/21 10/13/21 Range/Units 16:54 16:54 17:01 WBC (4.8-10.8) K/ul RBC (3.93-5.22) M/uL Hgb (12.0-16.0) g/dl Hct (34.1-44.9) % MCV (80.0-100.0) fL MCH (25.0-34.0) pg MCHC (32.0-36.0) g/dL RDW Std Deviation (36.4-46.3) fL RDW Coeff of Kulwinder (11.5-14.5) % Plt Count (130-400) K/uL MPV (9.4-12.3) fL Immature Gran % (Auto) % Neut % (Auto) % Lymph % (Auto) % [place] % (Auto) % Eos % (Auto) % Baso % (Auto) % Neut # (Auto) (1.4-6.5) K/uL Lymph # (Auto) (1.2-3.4) K/uL [place] # (Auto) (0.24-0.82) K/uL Eos # (Auto) (0-0.50) K/uL Baso # (Auto) (0-0.2) K/uL Immature Gran # (Auto) (0.00-0.02) K/uL Sodium (136-145) mmol/L Potassium (3.5-5.1) mmol/L Chloride (98-107) mmol/L Carbon Dioxide (21-32) mmol/L Anion Gap (3-11) BUN (6-23) mg/dl Creatinine (0.6-1.2) mg/dl Est Cr Clr Drug Dosing ml/min Est GFR ( Amer) ml/min Est GFR (Non-Af Amer) ml/min BUN/Creatinine Ratio (10-20) Glucose (70-99(Fasting)) mg/dl Calcium (8.5-10.1) mg/dl Total Bilirubin (0.2-1.0) mg/dl AST (13-39) U/L ALT (7-52) U/L Alkaline Phosphatase (34-104) U/L Total Creatine Kinase (26-192) U/L Troponin I High Sens (0-14) pg/ml Total Protein (6.0-8.3) gm/dl Albumin (3.4-5.0) gm/dl Globulin (2.5-4.0) gm/dl Albumin/Globulin Ratio (0.9-2) TSH 5.778 H (0.300-4.500) uIu/ml Free T4 0.88 (0.61-1.60) ng/dl Urine Color Urine Appearance (Clear) Urine pH (4.5-7.5) Ur Specific [place] (1.000-1.030) Urine Protein (Negative) Urine Glucose (UA) (Negative) Urine Ketones (Negative) Urine Blood (Negative) Urine Nitrite (Negative) Urine Bilirubin (Negative) Urine Urobilinogen (Negative) Ur Leukocyte Esterase (Negative) Urine WBC (Auto) (0-5) /hpf Urine RBC (Auto) (0-4) /hpf U Hyaline Cast (Auto) (0-5) /lpf U Epithel Cells (Auto) (0-5) /lpf Urine Bacteria (Auto) (Negative) Calcium Oxalate Crystal (None Prsent) Urine Mucus (None Prsent) Urine Yeast Ethyl Alcohol mg/dL < 10.0 (<10.0) mg/dl SARS-CoV-2, RNA, NAAT NEGATIVE (NEGATIVE) 10/13/21 Range/Units 18:27 WBC (4.8-10.8) K/ul RBC (3.93-5.22) M/uL Hgb (12.0-16.0) g/dl Hct (34.1-44.9) % MCV (80.0-100.0) fL MCH (25.0-34.0) pg MCHC (32.0-36.0) g/dL RDW Std Deviation (36.4-46.3) fL RDW Coeff of Kulwinder (11.5-14.5) % Plt Count (130-400) K/uL MPV (9.4-12.3) fL Immature Gran % (Auto) % Neut % (Auto) % Lymph % (Auto) % [place] % (Auto) % Eos % (Auto) % Baso % (Auto) % Neut # (Auto) (1.4-6.5) K/uL Lymph # (Auto) (1.2-3.4) K/uL [place] # (Auto) (0.24-0.82) K/uL Eos # (Auto) (0-0.50) K/uL Baso # (Auto) (0-0.2) K/uL Immature Gran # (Auto) (0.00-0.02) K/uL Sodium (136-145) mmol/L Potassium (3.5-5.1) mmol/L Chloride (98-107) mmol/L Carbon Dioxide (21-32) mmol/L Anion Gap (3-11) BUN (6-23) mg/dl Creatinine (0.6-1.2) mg/dl Est Cr Clr Drug Dosing ml/min Est GFR ( Amer) ml/min Est GFR (Non-Af Amer) ml/min BUN/Creatinine Ratio (10-20) Glucose (70-99(Fasting)) mg/dl Calcium (8.5-10.1) mg/dl Total Bilirubin (0.2-1.0) mg/dl AST (13-39) U/L ALT (7-52) U/L Alkaline Phosphatase (34-104) U/L Total Creatine Kinase (26-192) U/L Troponin I High Sens (0-14) pg/ml Total Protein (6.0-8.3) gm/dl Albumin (3.4-5.0) gm/dl Globulin (2.5-4.0) gm/dl Albumin/Globulin Ratio (0.9-2) TSH (0.300-4.500) uIu/ml Free T4 (0.61-1.60) ng/dl Urine Color Dark Yellow Urine Appearance Turbid A (Clear) Urine pH 5.5 (4.5-7.5) Ur Specific [place] 1.031 H (1.000-1.030) Urine Protein 1+ H (Negative) Urine Glucose (UA) Negative (Negative) Urine Ketones 3+ H (Negative) Urine Blood Negative (Negative) Urine Nitrite Negative (Negative) Urine Bilirubin 2+ H (Negative) Urine Urobilinogen Negative (Negative) Ur Leukocyte Esterase 1+ H (Negative) Urine WBC (Auto) >30 H (0-5) /hpf Urine RBC (Auto) 5-10 H (0-4) /hpf U Hyaline Cast (Auto) 1-5 (0-5) /lpf U Epithel Cells (Auto) >30 H (0-5) /lpf Urine Bacteria (Auto) 4+ H (Negative) Calcium Oxalate Crystal Present A (None Prsent) Urine Mucus Present A (None Prsent) Urine Yeast Not Reportable Ethyl Alcohol mg/dL (<10.0) mg/dl SARS-CoV-2, RNA, NAAT (NEGATIVE) Administered Medications Discontinued Medications Sodium Chloride (Nss) 500 mls @ 999 mls/hr IV .Q31M KIRK Stop: 10/13/21 16:30 Last Infusion: 10/13/21 17:56 Dose: 0 mls/hr Documented By: Admin: 10/13/21 16:58 Dose: 999 mls/hr Documented By: OSIRIS Thiamine HCl 500 mg/ Sodium (Chloride) 55 mls @ 220 mls/hr IV NOW ONE Stop: 10/13/21 18:43 Last Admin: 10/13/21 19:59 Dose: 220 mls/hr Documented By: BERNARDO Ceftriaxone Sodium (Rocephin) 1,000 mg in 50 mls @ 100 mls/hr IV NOW STA Stop: 10/13/21 20:00 Last Admin: 10/13/21 19:55 Dose: 100 mls/hr Documented By: BERNARDO Imaging Data Radiologist's Impression: Chest X-Ray 10/13/21 16:00 XR chest 1V portable CLINICAL HISTORY: dizzy. Evaluate cardiopulmonary status COMPARISON STUDY: 10/14/2015 TECHNIQUE: 1 view of the chest FINDINGS: Single frontal view of the chest demonstrates the cardiomediastinal silhouette to be within normal limits. The lungs are clear of alveolar opacities. There is no evidence for pleural effusion. There is no evidence for vascular congestion. There is no acute osseous pathology. IMPRESSION: 1. No acute cardiopulmonary disease. ACT 112: Negative or not required by law. Electronically signed by: Nael Vo M.D. 10/13/2021 4:[address] 10/13/21 16:00 CT head/brain wo con CLINICAL HISTORY: dizzy COMPARISON STUDY: 09/19/2015 CT DOSE: 614.27 mGy.cm TECHNIQUE: Standard CT of the Brain was performed without IV contrast. A dose lowering technique was utilized adhering to the principles of ALARA. FINDINGS: Extraaxial space: There is no evidence for subdural hematoma. There are no extra-axial fluid collections. Ventricles and cisterns: The ventricles are mildly dilated bilaterally. There is no evidence for midline shift or mass effect. Parenchyma: There is no subarachnoid or intraparenchymal hemorrhage. There is no evidence for an acute infarct or cerebral edema. There is mild cerebral cortical atrophy and decreased attenuation in the periventricular white matter representing remote small vessel disease. There are no gross mass lesions. Osseous structures: There is no evidence for an acute fracture. Minimal mucosal thickening is seen involving the floor of the left maxillary antrum. The remaining visualized paranasal sinuses are clear. The mastoid air cells are clear bilaterally. Soft tissues: There is no evidence for focal soft tissue swelling. IMPRESSION: 1. No acute intracerebral pathology. 2. Mild cerebral cortical atrophy and remote small vessel disease. 3. Minimal chronic left maxillary sinusitis. ACT 112: Negative or not required by law. Electronically signed by: Nael Vo M.D. 10/13/2021 4:37 PM Discharge Plan Visit Data Chief Complaint: Fall ED Provider: Mio Davila Discharge Problem: AMS (altered mental status), Alcohol use, Weakness, Alcohol abuse Forms Stand Alone Forms: [facility] [employer] Prescriptions Prescriptions: No Action pantoprazole 40 mg tablet,delayed release (DR/EC) 40 mg PO BID Qty: 60 5RF gabapentin 300 mg capsule 300 mg PO HS tamoxifen 10 mg Tablet 10 mg PO Q2D epinephrine 0.3 mg/0.3 mL auto-injector 0.3 mg IM UD PRN (Reason: Allergic Reaction) cyanocobalamin (vitamin B-12) 500 mcg Tablet 1,000 mcg PO QAM Qty: 30 0RF bismuth subsalicylate 262 mg tablet,chewable 2 tab PO QID PRN (Reason: UPSET STOMACH) hydroxyzine HCl 10 mg Tablet 10 mg PO DAILY PRN (Reason: Anxiety) Referrals Referrals: Nubia Pratt MD [Primary Care Provider] -
--- NOTE | 2021-10-13 16:39 | CT Scan Report ---
CT head/brain wo con CLINICAL HISTORY: dizzy COMPARISON STUDY: 09/19/2015 CT DOSE: 614.27 mGy.cm TECHNIQUE: Standard CT of the Brain was performed without IV contrast. A dose lowering technique was utilized adhering to the principles of ALARA. FINDINGS: Extraaxial space: There is no evidence for subdural hematoma. There are no extra-axial fluid collecti ons. Ventricles and cisterns: The ventricles are mildly dilated bilaterally. There is no evidence for midl ine shift or mass effect. Parenchyma: There is no subarachnoid or intraparenchymal hemorrhage. There is no evidence for an acut e infarct or cerebral edema. There is mild cerebral cortical atrophy and decreased attenuation in the periventricular white matter representing remote small vessel disease. There are no gross mass lesio ns. Osseous structures: There is no evidence for an acute fracture. Minimal mucosal thickening is seen in volving the floor of the left maxillary antrum. The remaining visualized paranasal sinuses are clear. The mastoid air cells are clear bilaterally. Soft tissues: There is no evidence for focal soft tissue swelling. IMPRESSION: 1. No acute intracerebral pathology. 2. Mild cerebral cortical atrophy and remote small vessel disease. 3. Minimal chronic left maxillary sinusitis. ACT 112: Negative or not required by law. Electronically signed by: Nael Vo M.D. 10/13/2021 4:37 PM
--- NOTE | 2021-10-13 16:46 | XRay Report ---
XR chest 1V portable CLINICAL HISTORY: dizzy. Evaluate cardiopulmonary status COMPARISON STUDY: 10/14/2015 TECHNIQUE: 1 view of the chest FINDINGS: Single frontal view of the chest demonstrates the cardiomediastinal silhouette to be within normal li mits. The lungs are clear of alveolar opacities. There is no evidence for pleural effusion. There is no evidence for vascular congestion. There is no acute osseous pathology. IMPRESSION: 1. No acute cardiopulmonary disease. ACT 112: Negative or not required by law. Electronically signed by: Nael Vo M.D. 10/13/2021 4:45 PM
[2021-10-13 17:10] LABS: Basophils # (auto) 0.01 K/uL (0-0.2); Basophils % (auto) 0.2 %; Eosinophils # (auto) 0.03 K/uL (0-0.50); Eosinophils % (auto) 0.6 %; Hematocrit (blood only) 33.4 % (34.1-44.9); Hemoglobin 10.9 g/dl (12.0-16.0); Immature Granulocytes # (auto) 0.03 K/uL (0.00-0.02); Immature Granulocytes % (auto) 0.6 %; Lymphocytes % (auto) 24.9 %; Mean Corpuscular Hemoglobin 34.4 pg (25.0-34.0); Mean Corpuscular Hgb Conc 32.6 g/dL (32.0-36.0); Mean Corpuscular Volume 105.4 fL (80.0-100.0); Mean Platelet Volume 9.3 fL (9.4-12.3); Monocytes # (auto) 0.45 K/uL (0.24-0.82); Monocytes % (auto) 9.3 %; Neutrophils % (auto) 64.4 %; Platelet Count 386 K/uL (130-400); RDW Coefficient of Variation 17.5 % (11.5-14.5); RDW Standard Deviation 67.9 fL (36.4-46.3); Red Blood Count 3.17 M/uL (3.93-5.22); White Blood Count 4.82 K/ul (4.8-10.8)
[2021-10-13 17:33] LABS: Albumin Level 3.4 gm/dl (3.4-5.0); BUN Creatinine Ratio 30.5 (10-20); Bilirubin,Total 1.3 mg/dl (0.2-1.0); Calcium 8.5 mg/dl (8.5-10.1); Creatinine Clr Calc Pharmacy 84.5 ml/min; Est GFR (African American) 108.4 ml/min; Est GFR (Non-African American) 93.5 ml/min; Globulin 3.3 gm/dl (2.5-4.0); Potassium 3.9 mmol/L (3.5-5.1); Total Protein 6.7 gm/dl (6.0-8.3)
[2021-10-13 17:37] LABS: Troponin I High Sensitivity 8.2 pg/ml (0-14)
[2021-10-13] MEDS ORDERED: THIAMINE HCL 500 MG in SODIUM CHLORIDE 0.9% 50 ML IV ONE (18:42)
[2021-10-13 18:53] LABS: Appearance Urine Turbid (Clear); Bacteria Urine Automated 4+ (Negative); Blood Urine Negative (Negative); Color Urine Dark Yellow; Epithelial Cell Urine Auto >30 /lpf (0-5); Glucose Urine UA Negative (Negative); Ketones Urine 3+ (Negative); Leukocyte Esterase Urine 1+ (Negative); Nitrite Urine Negative (Negative); Protein Urine 1+ (Negative); Specific Gravity Urine 1.031 (1.000-1.030); Urobilinogen Urine Negative (Negative); WBC Urine Automated >30 /hpf (0-5); pH Urine 5.5 (4.5-7.5)
[2021-10-13 19:05] LABS: Bilirubin Urine 2+ (Negative)
[2021-10-13] MEDS ORDERED: LACTATED RINGER'S 1,000 ML IV ONE (19:17)
--- NOTE | 2021-10-13 19:18 | History & Physical Report ---
Date of Service October 13, 2021 Assessment & Plan (1) Weakness: Plan: Presents with weakness and fatigue - has not been eating or drinking she endorses- normal glucose - TSH pending - UTI - LR overnight for volume- spec grav slightly elevated - Thiamine 500mg IV q8 - check mag and po4 - TSH and T4 pending - neuro checks overnight with her fall eval for DASH- any change obtain non-con head CT (2) UTI (urinary tract infection): Plan: Likely related to number one - UA LE 1+ NIt neg, bacteria 4 + with epi and WBC >30- likely contaminated sample however has just had diarrhea with her treatment for H. pylori and presenting with fatigue, loss of appetite, and generalized weakness. Will cover with Rocephin (3) GERD with esophagitis: Plan: Continue with Protinix 40mg BID - is to follow up with GI next week for re-eval - Has completed her Fluconazole PO - Has completed her therapy for H. Pylori (4) Alcohol use: Plan: Alcohol misuse she reports not drinking for 3 days - reports that she has not had complicated withdrawls before - Thiamine 500 IV q8 - AAWS score for at risk - with ativan - ETHO level <10 on arrival (5) Wheelchair bound: Plan: Able to transfer herself into and out of - PT/OT eval (6) Vitamin B12 deficiency: Plan: Continue with supplementation (7) History of breast cancer: Plan: Continue Tamoxifen (8) Macrocytic anemia: Plan: Chronic MCV 105 HGB stable following endoscopy - continue B12 add folate (9) Leukocytopenia, unspecified: Plan: Chronic likely marrow suppression from her chronic ETOH misuse - follow with hydration and AM labs History of Present Illness Primary Care Provider: Nubia Pratt MD 70 YOF: Comes to the hospital today after being found on the ground with unknown time by her caregiver. She is wheelchair dependant secondary to history of femur fracture. She reports that she hasn't been eating or drinking for the past 3 days or sleeping well. This has been ongoing for the past week she feels. She can recall why she fell as she didn't feel like pulling her wh eelchair closer and tried to "leap" from couch to her chair. She feels that most of her feelings above are related to her increase in medications over the past month. She also endorses that she hasn't drank in 3-4 days. She normally drinks a box of wine over 2-3 days. She denies any other pain, confusion, or fevers at home. Patient will be observed overnight, frequent neurological exams, and AWWS scoring with PRN dosing. She will be given Thiamine 500mg IV TID, LR overnight. Her CK are normal, renal function normal. Will check MG PO4. PT/OT consult. Patient was previously seen in early September for UGIB found to have esophagitis as well as gastritis and H. Pylori infection. She was treated with triple therapy for this and finished this up this week. She also continued Fluconazole for her esophagitis COVID test on admission is: NEGATIVE Allergies Allergy/AdvReac Type Severity Reaction Status Date / Time bee venom protein (honey bee) Allergy Severe ANAPHYLAXIS Verified 10/13/21 18:36 adhesive Allergy Intermediate HIVES Verified 10/13/21 18:36 latex Allergy Intermediate Hives Verified 10/13/21 18:36 metronidazole [From Flagyl] AdvReac Intermediate CAUSES Verified 10/13/21 18:36 YEAST INFECTIONS Home Medications Medication Instructions Recorded Confirmed Type gabapentin 300 mg capsule 300 mg PO HS 12/14/19 10/13/21 History hydroxyzine HCl 10 mg tablet 10 mg PO DAILY PRN Anxiety 08/25/20 10/13/21 History tamoxifen 10 mg tablet 10 mg PO Q2D 08/31/21 10/13/21 History pantoprazole 40 mg tablet,delayed 40 mg PO BID #60 tabs 09/04/21 10/13/21 Rx release epinephrine 0.3 mg/0.3 mL 0.3 mg IM UD PRN Allergic Reaction 09/24/21 10/13/21 History injection, auto-injector cyanocobalamin (vitamin B-12) 500 1,000 mcg PO QAM #30 tabs 09/27/21 10/13/21 Rx mcg tablet bismuth subsalicylate 262 mg 2 tab PO QID PRN UPSET STOMACH 10/13/21 10/13/21 History chewable tablet Past Med/Surg History Medical History (Updated 10/13/21 @ 20:09 by Mio Davila DO) 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 pylori infection History of COVID-19 diagnosed 04/15/20 @ [facility] [place]--asymptomatic--diagnosed prior to a scheduled sx History of COVID-19 asymptomatic, positive March 2020 (tested prior to surgery) History of facial trauma History of femur fracture right side--per pt did not heal properly and reason for wheelchair History of right breast cancer diagnosed 03/17/20--sx/oral chemo Loss of appetite Visual hallucinations d/t alcohol use Weight loss, unintentional Wernickes encephalopathy (04/12/14) Wheelchair bound Surgical History History of ankle surgery right History of bilateral cataract extraction History of blepharoplasty bilateral History of colonoscopy History of endometrial ablation History of left breast biopsy History of open reduction and internal fixation (ORIF) procedure right femur--hardware in place History of partial mastectomy of left breast sentinel lymph node removal 06/17/2016 History of tooth extraction History of total right knee replacement (TKR) x3 History of wisdom tooth extraction S/P lumpectomy, right breast Family History Other No family history of adverse response to anesthesia Social History Smoking Status: Never smoker Second Hand Exposure: No; Hx Alcohol Use: Yes Alcohol type: wine Hx Substance Use: No Preferred Language: Syrian Communication Ability: Effective Petrologist Required: No Beliefs That Will Affect Care: None marital status: Legally Current Living Situation: Alone Current Living Situation Comment: lives alone, does not live with . Caregiver lives 10 min away Feels Safe at Home: Yes Sunscreen Use: No Assistive Devices: Walker and Wheelchair Review of Systems Review of Systems: REVIEW OF SYSTEMS: Constitutional: (+) tired feeling, No fever, sweats or chills Eyes: No diplopia, no worsening or blurred vision ENT: normal hearing, no trouble swallowing Respiratory: No cough, sputum, dyspnea at rest or on exertion Cardiovascular: No chest pain, tightness or palpitations Abdomen: No pain, nausea, vomiting, diarrhea or constipation Musculoskeletal: (+) wheel chair dependant, No joint pain, calf pain, swelling Neurologic: No weakness, numbness/tingling, or balance problems Psychiatric: No anxiety or depression Skin: No rash or itch Physical Exam Physical Exam: PHYSICAL EXAM: General: awake, alert, no apparent distress Head: Normocephalic, atraumatic ENT: PERRL, EOMI, no pharyngeal exudate, mucous membranes dry Neuro: AAO x 3, speech clear and appropriate, strength intact bilaterally 5/5, sensation intact and equal all extremities and dermatomes, no pronator drift, no tremors Chest: equal rise and fall of the chest, no accessory muscle use, no heaves or thrills, Clear to auscultation, on room air, Cardiac: Regular rate and rhythm, telemetry reviewed, skin warm dry, cap refill <3 seconds, peripheral pulses +2 no JVD, no murmur, GI: NABS x 4 quadrants, soft, nontender to palpation, no rebound, guarding or tenderness : Spontaneously voiding, no pain, no CVA tenderness, Extremities: Generlized edema and foot drop to her feet, sensation intact Psych: Normal mood and affects Skin: no rash or erythema Results & Data Results & Data ([facility]) Vital Signs (Past 12 Hours) Vital Signs Temp Pulse Pulse Resp BP BP Pulse Ox 10/13/21 17:55 98 H 17 166/78 H 98 10/13/21 16:11 98 H 17 98 10/13/21 15:54 36.4 C L 93 H 17 114/70 100 O2 Del Method 10/13/21 17:55 Room Air 10/13/21 16:11 Room Air 10/13/21 15:54 Room Air Laboratory Results Abnormal lab results 10/13/21 10/13/21 10/13/21 Range/Units 16:45 16:45 18:27 RBC 3.17 L (3.93-5.22) M/uL Hgb 10.9 L (12.0-16.0) g/dl Hct 33.4 L (34.1-44.9) % MCV 105.4 H (80.0-100.0) fL MCH 34.4 H (25.0-34.0) pg RDW Std Deviation 67.9 H (36.4-46.3) fL RDW Coeff of Kulwinder 17.5 H (11.5-14.5) % MPV 9.3 L (9.4-12.3) fL Immature Gran # (Auto) 0.03 H (0.00-0.02) K/uL Anion Gap 15 H (3-11) Creatinine 0.59 L (0.6-1.2) mg/dl BUN/Creatinine Ratio 30.5 H (10-20) Total Bilirubin 1.3 H (0.2-1.0) mg/dl AST 42 H (13-39) U/L Urine Appearance Turbid A (Clear) Ur Specific [place] 1.031 H (1.000-1.030) Urine Protein 1+ H (Negative) Urine Ketones 3+ H (Negative) Urine Bilirubin 2+ H (Negative) Ur Leukocyte Esterase 1+ H (Negative) Diagnostic Findings Chest X-Ray 10/13/21 16:00 XR chest 1V portable CLINICAL HISTORY: dizzy. Evaluate cardiopulmonary status COMPARISON STUDY: 10/14/2015 TECHNIQUE: 1 view of the chest FINDINGS: Single frontal view of the chest demonstrates the cardiomediastinal silhouette to be within normal limits. The lungs are clear of alveolar opacities. There is no evidence for pleural effusion. There is no evidence for vascular congestion. There is no acute osseous pathology. IMPRESSION: 1. No acute cardiopulmonary disease. ACT 112: Negative or not required by law. Electronically signed by: Nael Vo M.D. 10/13/2021 4:[address] 10/13/21 16:00 CT head/brain wo con CLINICAL HISTORY: dizzy COMPARISON STUDY: 09/19/2015 CT DOSE: 614.27 mGy.cm TECHNIQUE: Standard CT of the Brain was performed without IV contrast. A dose lowering technique was utilized adhering to the principles of ALARA. FINDINGS: Extraaxial space: There is no evidence for subdural hematoma. There are no extra-axial fluid collections. Ventricles and cisterns: The ventricles are mildly dilated bilaterally. There is no evidence for midline shift or mass effect. Parenchyma: There is no subarachnoid or intraparenchymal hemorrhage. There is no evidence for an acute infarct or cerebral edema. There is mild cerebral cortical atrophy and decreased attenuation in the periventricular white matter representing remote small vessel disease. There are no gross mass lesions. Osseous structures: There is no evidence for an acute fracture. Minimal mucosal thickening is seen involving the floor of the left maxillary antrum. The remaining visualized paranasal sinuses are clear. The mastoid air cells are clear bilaterally. Soft tissues: There is no evidence for focal soft tissue swelling. IMPRESSION: 1. No acute intracerebral pathology. 2. Mild cerebral cortical atrophy and remote small vessel disease. 3. Minimal chronic left maxillary sinusitis. ACT 112: Negative or not required by law. Electronically signed by: Nael Vo M.D. 10/13/2021 4:37 PM Medications Administered Home Medications gabapentin 300 mg capsule 300 mg PO HS 12/14/19 [History Confirmed 10/13/21] hydroxyzine HCl 10 mg tablet 10 mg PO DAILY PRN Anxiety 08/25/20 [History Confirmed 10/13/21] tamoxifen 10 mg tablet 10 mg PO Q2D 08/31/21 [History Confirmed 10/13/21] pantoprazole 40 mg tablet,delayed release 40 mg PO BID #60 tabs 09/04/21 [Rx Confirmed 10/13/21] epinephrine 0.3 mg/0.3 mL injection, auto-injector 0.3 mg IM UD PRN Allergic Reaction 09/24/21 [History Confirmed 10/13/21] cyanocobalamin (vitamin B-12) 500 mcg tablet 1,000 mcg PO QAM #30 tabs 09/27/21 [Rx Confirmed 10/13/21] bismuth subsalicylate 262 mg chewable tablet 2 tab PO QID PRN UPSET STOMACH 10/13/21 [History Confirmed 10/13/21] Active Medications Lactated Ringer's (Lr) 1,000 mls @ 90 mls/hr IV .Q11H7M ONE Stop: 10/14/21 06:23 Discontinued Medications Sodium Chloride (Nss) 500 mls @ 999 mls/hr IV .Q31M KIRK Stop: 10/13/21 16:30 Last Infusion: 10/13/21 17:56 Dose: 0 mls/hr Documented By: Admin: 10/13/21 16:58 Dose: 999 mls/hr Documented By: OSIRIS ECG Additional Comments: Normal sinus rhythm Low voltage QRS Nonspecific T wave abnormality Prolonged QT Abnormal ECG When compared with ECG of 25-SEP-2021 16:47, No significant change was found Code Status & VTE Plan Code Status CODE: FULL VTE: SCDS, Heparin 5000 units subq q12 Supervising Physician Co-Signing Physician Notes I supervised PABLITO Johnson on this admission. I interviewed and examined the patient independently of him. The plan is as written in his note except for any following changes/exceptions: None 70yo F w/ hx of mobility issues who presents after fall at home. On my exam, she is alert and oriented. Feels concerned about her ongoing weight loss, but in no acute distress. Alcohol likely playing a role here. As per Mr. Singh's note, will admit for weakness investigation & PT/OT. PG Care Time/CCT Total # of Minutes Spent Total Time Spent with Patient: Total time spent is greater than 50% in coordination of care (as documented) at patient's floor/unit and/or counseling patient: Coding Level of Care Code INT OBSERVATION CARE 71M LVL 3 Diagnoses Weakness R53.1 UTI (urinary tract infection) N39.0 GERD with esophagitis K21.00 Alcohol use Z72.89 Wheelchair bound Z99.3 Vitamin B12 deficiency E53.8 History of breast cancer Z85.3 Macrocytic anemia D53.9 Leukocytopenia, unspecified D72.819
[2021-10-13 19:20] LABS: Mucus Urine Present (None Prsent)
[2021-10-13 19:22] LABS: Calcium Oxalate Crystals Urine Present (None Prsent)
[2021-10-13] MEDS ORDERED: cefTRIAXone SODIUM 1,000 MG/50 ML BAG IV STA (19:31)
[2021-10-13 19:33] LABS: Thyroid Stimulating Hormone 5.778 uIu/ml (0.300-4.500)
[2021-10-13 20:05] LABS: T4 Free Thyroxine 0.88 ng/dl (0.61-1.60)
[2021-10-13] MEDS ORDERED: ACETAMINOPHEN 325 MG TAB PO PRN (21:55)
[2021-10-13] MEDS ORDERED: LORazepam 1 MG TAB PO PRN (21:55)
[2021-10-13] MEDS ORDERED: hydrOXYzine HCl 10 MG TAB PO PRN (21:55)
[2021-10-13] MEDS ORDERED: THIAMINE HCL 500 MG in DEXTROSE 5% 100 ML IV SCH (22:00)
[2021-10-13 22:13] LABS: Magnesium 1.7 mg/dl (1.7-2.4); Phosphorus 2.5 mg/dl (2.5-4.9)
[2021-10-13] MEDS: FOLIC ACID 1 MG in SYRINGE 9.8 ML IV SCH (22:40)
[2021-10-13] MEDS: THIAMINE HCL 500 MG in 0.9 % SODIUM CHLORIDE 100 ML IV SCH (22:41)
[2021-10-13] MEDS: PANTOprazole 40 MG TAB PO SCH (22:41)
[2021-10-14] MEDS: THIAMINE HCL 500 MG in 0.9 % SODIUM CHLORIDE 100 ML IV SCH ×3 (05:00→21:03)
[2021-10-14 08:24] LABS: Basophils # (auto) 0.01 K/uL (0-0.2); Basophils % (auto) 0.3 %; Eosinophils # (auto) 0.03 K/uL (0-0.50); Eosinophils % (auto) 0.8 %; Hematocrit (blood only) 27.9 % (34.1-44.9); Hemoglobin 8.8 g/dl (12.0-16.0); Immature Granulocytes # (auto) 0.02 K/uL (0.00-0.02); Immature Granulocytes % (auto) 0.5 %; Lymphocytes # (auto) 1.02 K/uL (1.2-3.4); Mean Corpuscular Hemoglobin 33.1 pg (25.0-34.0); Mean Corpuscular Hgb Conc 31.5 g/dL (32.0-36.0); Mean Corpuscular Volume 104.9 fL (80.0-100.0); Mean Platelet Volume 9.3 fL (9.4-12.3); Monocytes # (auto) 0.42 K/uL (0.24-0.82); Monocytes % (auto) 10.7 %; Neutrophils # (auto) 2.43 K/uL (1.4-6.5); Neutrophils % (auto) 61.7 %; Platelet Count 320 K/uL (130-400); RDW Coefficient of Variation 17.6 % (11.5-14.5); RDW Standard Deviation 68.1 fL (36.4-46.3); Red Blood Count 2.66 M/uL (3.93-5.22); White Blood Count 3.93 K/ul (4.8-10.8)
[2021-10-14 08:43] LABS: BUN Creatinine Ratio 30.8 (10-20); Calcium 7.6 mg/dl (8.5-10.1); Creatinine Clr Calc Pharmacy 95.9 ml/min; Est GFR (Non-African American) 97.5 ml/min; Magnesium 1.5 mg/dl (1.7-2.4); Phosphorus 2.6 mg/dl (2.5-4.9); Potassium 3.4 mmol/L (3.5-5.1)
[2021-10-14] MEDS: CYANOCOBALAMIN (B-12) 500 MCG TABLET PO SCH (09:23)
[2021-10-14] MEDS: FOLIC ACID 1 MG in SYRINGE 9.8 ML IV SCH (09:24)
[2021-10-14] MEDS: TAMOXIFEN CITRATE 10 MG TABLET PO SCH (09:24)
[2021-10-14] MEDS: PANTOprazole 40 MG TAB PO SCH ×2 (09:24→20:59)
--- NOTE | 2021-10-14 13:48 | Electrocardiogram Report ---
Test Reason : Blood Pressure : / mmHG Vent. Rate : 080 BPM Atrial Rate : 080 BPM P-R Int : 130 ms QRS Dur : 062 ms QT Int : 422 ms P-R-T Axes : 060 070 069 degrees QTc Int : 486 ms Poor data quality, interpretation may be adversely affected Normal sinus rhythm Low voltage QRS Abnormal ECG When compared with ECG of 25-SEP-2021 16:47, No significant change was found Confirmed by Ross Garcia ([id number]) on 10/14/2021 1:48:40 PM Referred By: ED Confirmed By:Ross Garcia
[2021-10-14] MEDS ORDERED: POTASSIUM CHLORIDE CRTAB 20 MEQ TABCR PO STA (13:50)
--- NOTE | 2021-10-14 13:58 | Hospitalist Progress Note ---
Date of Service October 14, 2021 Assessment & Plan (1) Weakness: Plan: Presents with weakness and fatigue - has not been eating or drinking she endorses- normal glucose - Urine suggestive of UTI but asymptomatic - Received IVF in ED and overnight - Thiamine 500mg IV q8 x 2 days and then switch to 250mg daily - Mag low at 1.5, replacement ordered - TSH slightly elevated at 5.778 but FT4 WNL - Recently hospitalized for same, pt lives alone, obtain PT/OT eval, ?rehab - CM consult for d/c planning (2) UTI (urinary tract infection): Plan: Likely related to number one, asymptomatic - UA LE 1+ Nit neg, bacteria 4 + with epi and WBC >30 - Urine culture pending - Started empirically on Rocephin, will await C&S results, but could treat for 3 days as this would be considered uncomplicated (3) Macrocytic anemia: Plan: Chronic MCV 105, hgb stable following EGD on 09/25 - continue B12 add folate - slight drop from admission 10.9 g/dl to 8.8, suspect dilutional drop - monitor (4) GERD with esophagitis: Plan: Continue with Protinix 40mg BID - is to follow up with GI next week for re-eval - Has completed her Fluconazole PO - Has completed her therapy for H. Pylori (5) Alcohol use: Plan: Alcohol misuse she reports not drinking for 3 days - Previous h/o complicated withdrawal including visual and auditory hallucinations and DTs in 2016 - Thiamine 500 IV q8 x 2 days with transition to 250mg daily and then back to 100mg daily - AAWS score for at risk - with ativan - Pt does not drink heavily, usually 1 glass of wine/night (6) Wheelchair bound: Plan: Able to transfer herself into and out of - PT/OT eval to determine appropriate dispo on d/c (7) Vitamin B12 deficiency: Plan: - Continue with supplementation (8) History of breast cancer: Plan: - Continue Tamoxifen (9) Leukocytopenia, unspecified: Plan: Chronic likely marrow suppression from her chronic ETOH misuse - stable Plan Interventions as outlined above. Await urine C&S, continue Rocephin. Add Erythromycin ointment to R eye. PT/OT eval. CM consult. D/c planning. Pt will consider rehab if it is covered by her insurance. Above plan of care d/w Dr. Ponce. Admission and Anticipated Discharge Date Admission Date: October 13, 2021 Subjective Patient was seen on daily rounds this morning. She is resting comfortably in bed and offers no complaints/concerns at present. Pt recently hospitalized and d/c'd after stay for same (generalized weakness) which was felt to be related to her diarrhea from Flagyl use that she was taking for her PUD d/t H. pylori. Doing well following her discharge until she sustained a mechanical GLF. She denies further BRBPR or melena, no cp, dyspnea, n/v/d, f/c, headache, or gu symptoms. She did not pass out or lose consciousness. Review of Systems Review of Systems: All systems reviewed and are unremarkable except as noted in HPI and below. Denies fever, chills, fatigue, headache, nasal congestion, sore throat, cough, chest pain, shortness of breath, palpitations, orthopnea, PND, abdominal pain, n/v/d, constipation, dysuria, hematuria, frequency, back pain, joint pain or swelling, easy bruising or bleeding, skin lesions or rashes. Physical Exam Physical Exam: GENERAL: 70 yo well-developed, well-nourished WF. NAD. LUNGS: Clear to auscultation bilaterally. No W/R/R. CARDIOVASCULAR: Regular rate and rhythm. ABDOMEN: Soft, non-tender and non-distended. BS normoactive x 4 quad. EXTREMITIES: No edema. Non-tender. Peripheral pulses +2/4. NEUROLOGIC: A&O x3. PSYCHIATRIC: Cooperative. Appropriate mood and affect. SKIN: Warm, dry, intact. No rashes or lesions. Results & Data Results & Data ([facility]) Vital Signs (Past 12 Hours) Vital Signs Temp Pulse Resp BP Pulse Ox 10/14/21 10:34 36.4 C L 93 H 18 105/52 L 100 Laboratory Results 10/14/21 08:01 10/14/21 08:01 PG Care Time/CCT Total # of Minutes Spent Total Time Spent with Patient: Total time spent is greater than 50% in coordination of care (as documented) at patient's floor/unit and/or counseling patient: Coding Level of Care Code 26452 Subseq Obs Care Lvl 2 Diagnoses Weakness R53.1 UTI (urinary tract infection) N39.0 Macrocytic anemia D53.9 GERD with esophagitis K21.00 Alcohol use Z72.89 Wheelchair bound Z99.3 Vitamin B12 deficiency E53.8 History of breast cancer Z85.3 Leukocytopenia, unspecified D72.819
[2021-10-14] MEDS: MAGNESIUM SULFATE / D5W 1 GM/100 ML BAG IV SCH ×2 (15:24→17:21)
[2021-10-14] MEDS: cefTRIAXone SODIUM 1,000 MG in DEXTROSE 5% 50 ML IV SCH (20:18)
[2021-10-14] MEDS: ERYTHROMYCIN OP OINT 5 MG/GM 3.5 GM TUBE OP SCH (20:59)
[2021-10-15] MEDS: THIAMINE HCL 500 MG in 0.9 % SODIUM CHLORIDE 100 ML IV SCH (05:03)
[2021-10-15 07:50] LABS: Basophils # (auto) 0.01 K/uL (0-0.2); Basophils % (auto) 0.3 %; Eosinophils # (auto) 0.04 K/uL (0-0.50); Eosinophils % (auto) 1.1 %; Hemoglobin 9.6 g/dl (12.0-16.0); Immature Granulocytes # (auto) 0.02 K/uL (0.00-0.02); Immature Granulocytes % (auto) 0.5 %; Lymphocytes # (auto) 1.08 K/uL (1.2-3.4); Lymphocytes % (auto) 29.1 %; Mean Corpuscular Hemoglobin 33.8 pg (25.0-34.0); Mean Corpuscular Volume 105.6 fL (80.0-100.0); Mean Platelet Volume 9.5 fL (9.4-12.3); Monocytes # (auto) 0.47 K/uL (0.24-0.82); Monocytes % (auto) 12.7 %; Neutrophils # (auto) 2.09 K/uL (1.4-6.5); Neutrophils % (auto) 56.3 %; Platelet Count 296 K/uL (130-400); RDW Coefficient of Variation 17.6 % (11.5-14.5); RDW Standard Deviation 68.4 fL (36.4-46.3); Red Blood Count 2.84 M/uL (3.93-5.22); White Blood Count 3.71 K/ul (4.8-10.8)
[2021-10-15 08:11] LABS: BUN Creatinine Ratio 29.2 (10-20); Calcium 7.6 mg/dl (8.5-10.1); Creatinine Clr Calc Pharmacy 103.9 ml/min; Est GFR (Non-African American) 100.1 ml/min; Magnesium 1.8 mg/dl (1.7-2.4); Potassium 3.9 mmol/L (3.5-5.1)
--- NOTE | 2021-10-15 09:14 | Hospitalist Progress Note ---
Date of Service October 15, 2021 Assessment & Plan (1) Weakness: Plan: Presents with weakness and fatigue - has not been eating or drinking she endorses- normal glucose - Urine suggestive of UTI but asymptomatic - Received IVF in ED - Thiamine 500mg IV q8 x 2 days and then switch to 250mg daily - Mag replaced - TSH slightly elevated at 5.778 but FT4 WNL - Recently hospitalized for same, pt lives alone, patient likely benefit from inpatient rehab stay - CM consult for d/c planning (2) UTI (urinary tract infection): Plan: Likely related to number one, asymptomatic - UA LE 1+ Nit neg, bacteria 4 + with epi and WBC >30 - Urine culture multiple organisms, repeat 10/15/21 - Started empirically on Rocephin, could treat for 3 days as this would be considered uncomplicated (3) Macrocytic anemia: Plan: Chronic MCV 105, hgb stable following EGD on 09/25 - continue B12 add folate (4) GERD with esophagitis: Plan: Continue with Protinix 40mg BID patient is asymptomatic - is to follow up with GI next week for re-eval - Has completed her Fluconazole PO - Has completed her therapy for H. Pylori (5) Alcohol use: Plan: Alcohol misuse she reports not drinking for 3 days - Previous h/o complicated withdrawal including visual and auditory hallucinations and DTs in 2016 - Thiamine 500 IV q8 x 2 days with transition to 250mg daily and then back to 100mg daily - AAWS score for at risk - with ativan - Pt does not drink heavily, usually 1 glass of wine/night (6) Wheelchair bound: Plan: Able to transfer herself into and out reportedly from previous femur fracture issues - PT/OT eval to determine appropriate dispo on d/c (7) Vitamin B12 deficiency: Plan: - Continue with supplementation (8) History of breast cancer: Plan: - Continue Tamoxifen (9) Leukocytopenia, unspecified: Plan: Chronic likely marrow suppression from her chronic ETOH misuse - stable Admission and Anticipated Discharge Date Admission Date: October 14, 2021 Subjective PT is pleasant, good in conversation some memory loss with direct questioning Review of Systems Review of Systems: Mild distress and moderate fatigue no headache, no visual changes no speech or swallowing issues no chest pain, pressure or palpitations no shortness of breath, cough or wheezes no abdominal pain, nausea or vomiting, diarrhea or constipation no dysuria, hematuria or frequency no focal joint pain or swelling no back pain, CVA tenderness or radicular pain no bruising, bleeding or rashes no focal signs of weakness or numbness or altered sensation no complaints of anxiety or depression.. Physical Exam Physical Exam: The patient appeared well nourished and normally developed. Vital signs as documented. Head exam is normocephalic atraumatic Neck is without JVD, thyromegaly, or carotid bruits. Lungs are clear to auscultation, no focal loss of breath sounds Cardiac exam, Rhythm is regular.. No murmurs, rubs or gallops. Abdominal exam reveals normal bowel sounds, soft non tender, no masses Extremities are nonedematous and both pedal pulses are present Neurologic exam is alert and oriented, no focal loss of strength or sensation Skin is without bruises or rashes Psychologically is with concerns for memory loss Results & Data Results & Data ([facility]) Vital Signs (Past 12 Hours) Vital Signs Temp Pulse Pulse Resp BP BP Pulse Ox 10/15/21 07:12 97.2 F L 79 17 111/67 98 10/14/21 21:39 97.7 F 82 17 116/54 L 100 O2 Del Method 10/15/21 07:12 Room Air 10/14/21 21:39 Room Air PG Care Time/CCT Total # of Minutes Spent Total Time Spent with Patient: Total time spent is greater than 50% in coordination of care (as documented) at patient's floor/unit and/or counseling patient: Coding Level of Care Code 74023 Subseq Hosp Care Lvl 2 Diagnoses Weakness R53.1 UTI (urinary tract infection) N39.0 Macrocytic anemia D53.9 GERD with esophagitis K21.00 Alcohol use Z72.89 Wheelchair bound Z99.3 Vitamin B12 deficiency E53.8 History of breast cancer Z85.3 Leukocytopenia, unspecified D72.819
[2021-10-15] MEDS: CYANOCOBALAMIN (B-12) 500 MCG TABLET PO SCH (09:49)
[2021-10-15] MEDS: PANTOprazole 40 MG TAB PO SCH ×2 (09:49→20:24)
[2021-10-15] MEDS: FOLIC ACID 1 MG in SYRINGE 9.8 ML IV SCH (09:50)
[2021-10-15] MEDS: ERYTHROMYCIN OP OINT 5 MG/GM 3.5 GM TUBE OP SCH ×2 (09:50→20:23)
[2021-10-15] MEDS: cefTRIAXone SODIUM 1,000 MG in DEXTROSE 5% 50 ML IV SCH (20:00)
[2021-10-16] MEDS: PANTOprazole 40 MG TAB PO SCH ×2 (08:31→19:38)
[2021-10-16] MEDS: CYANOCOBALAMIN (B-12) 500 MCG TABLET PO SCH (08:32)
[2021-10-16] MEDS: TAMOXIFEN CITRATE 10 MG TABLET PO SCH (08:32)
[2021-10-16] MEDS: FOLIC ACID 1 MG in SYRINGE 9.8 ML IV SCH (08:32)
[2021-10-16] MEDS: ERYTHROMYCIN OP OINT 5 MG/GM 3.5 GM TUBE OP SCH ×2 (08:33→19:37)
[2021-10-16] MEDS: THIAMINE HCL 250 MG in SODIUM CHLORIDE 0.9% 50 ML IV SCH (09:51)
[2021-10-16 10:39] LABS: Basophils # (auto) 0.02 K/uL (0-0.2); Basophils % (auto) 0.6 %; Eosinophils # (auto) 0.07 K/uL (0-0.50); Eosinophils % (auto) 2.1 %; Hematocrit (blood only) 28.4 % (34.1-44.9); Hemoglobin 9.2 g/dl (12.0-16.0); Immature Granulocytes # (auto) 0.03 K/uL (0.00-0.02); Immature Granulocytes % (auto) 0.9 %; Lymphocytes # (auto) 1.14 K/uL (1.2-3.4); Lymphocytes % (auto) 33.9 %; Mean Corpuscular Hemoglobin 33.6 pg (25.0-34.0); Mean Corpuscular Hgb Conc 32.4 g/dL (32.0-36.0); Mean Corpuscular Volume 103.6 fL (80.0-100.0); Mean Platelet Volume 9.3 fL (9.4-12.3); Monocytes # (auto) 0.43 K/uL (0.24-0.82); Monocytes % (auto) 12.8 %; Neutrophils # (auto) 1.67 K/uL (1.4-6.5); Neutrophils % (auto) 49.7 %; Platelet Count 311 K/uL (130-400); RDW Coefficient of Variation 18.1 % (11.5-14.5); RDW Standard Deviation 68.5 fL (36.4-46.3); Red Blood Count 2.74 M/uL (3.93-5.22); White Blood Count 3.36 K/ul (4.8-10.8)
[2021-10-16 11:01] LABS: BUN Creatinine Ratio 19.3 (10-20); Calcium 7.9 mg/dl (8.5-10.1); Creatinine Clr Calc Pharmacy 87.5 ml/min; Est GFR (African American) 109.6 ml/min; Est GFR (Non-African American) 94.6 ml/min; Magnesium 1.6 mg/dl (1.7-2.4); Potassium 3.5 mmol/L (3.5-5.1)
--- NOTE | 2021-10-16 16:14 | Hospitalist Progress Note ---
Date of Service October 16, 2021 Assessment & Plan (1) Weakness: Plan: Presents with weakness and fatigue - has not been eating or drinking she endorses- normal glucose - Urine suggestive of UTI but asymptomatic, completed 3 days of ceftriaxone - Thiamine 500mg IV q8 x 2 days and then switch to 250mg daily - Mag replaced - TSH slightly elevated at 5.778 but FT4 WNL - Recently hospitalized for same, pt lives alone, patient likely benefit from inpatient rehab stay - CM consult for d/c planning (2) Hallucinations: Plan: visual hallucinations, has history of the same, does not seem to active alcohol withdrawal, will have MRI of brain with history of cancer, was treated empirically for UTI with rocephin, culture negative. The pt was offered medications to try to reduce or eliminate these but pt states is not bothering her, pt does not want meds at this time. (3) UTI (urinary tract infection): Plan: - UA LE 1+ Nit neg, bacteria 4 + with epi and WBC >30 - Urine culture multiple organisms, repeat 10/15/21 - Started empirically on Rocephin, treated for 3 days (4) Macrocytic anemia: Plan: Chronic MCV 105, hgb stable following EGD on 09/25 - continue B12 add folate (5) GERD with esophagitis: Plan: Continue with Protinix 40mg BID patient is asymptomatic - is to follow up with GI next week for re-eval - Has completed her Fluconazole PO - Has completed her therapy for H. Pylori (6) Alcohol use: Plan: Alcohol misuse she reports not drinking for 3 days - Previous h/o complicated withdrawal including visual and auditory hallucinations and DTs in 2016 - Thiamine 500 IV q8 x 2 days with transition to 250mg daily and then back to 100mg daily - AAWS score for at risk - with ativan - Pt does not drink heavily, usually 1 glass of wine/night -visual hallucinations without physiologic signs of withdrawal, so suspect may have hallucinations from mental health (7) Wheelchair bound: Plan: Able to transfer herself into and out reportedly from previous femur fracture issues - PT/OT eval to determine appropriate dispo on d/c (8) Vitamin B12 deficiency: Plan: - Continue with supplementation (9) History of breast cancer: Plan: - Continue Tamoxifen (10) Leukocytopenia, unspecified: Plan: Chronic likely marrow suppression from her chronic ETOH misuse - stable Admission and Anticipated Discharge Date Admission Date: October 14, 2021 Subjective pt still with some visual non troubling hallucination she is alert and oriented Review of Systems Review of Systems: Mild distress and moderate fatigue no headache, no visual changes no speech or swallowing issues no chest pain, pressure or palpitations no shortness of breath, cough or wheezes no abdominal pain, nausea or vomiting, diarrhea or constipation no dysuria, hematuria or frequency no focal joint pain or swelling no back pain, CVA tenderness or radicular pain no bruising, bleeding or rashes no focal signs of weakness or numbness or altered sensation no complaints of anxiety or depression.is having non troubling visual hallucinations . Physical Exam Physical Exam: The patient appeared well nourished and normally developed. Vital signs as documented. Head exam is normocephalic atraumatic Neck is without JVD, thyromegaly, or carotid bruits. Lungs are clear to auscultation, no focal loss of breath sounds Cardiac exam, Rhythm is regular.. No murmurs, rubs or gallops. Abdominal exam reveals normal bowel sounds, soft non tender, no masses Extremities are nonedematous and both pedal pulses are present Neurologic exam is alert and oriented, no focal loss of strength or sensation Skin is without bruises or rashes Psychologically is with concerns for memory loss, visual hallucinations Results & Data Results & Data ([facility]) Vital Signs (Past 12 Hours) Vital Signs Temp Pulse Resp BP Pulse Ox O2 Del Method 10/16/21 15:13 97.5 F L 99 H 17 104/66 99 Room Air 10/16/21 07:07 97.9 F 88 17 117/74 100 Room Air PG Care Time/CCT Total # of Minutes Spent Total Time Spent with Patient: Total time spent is greater than 50% in coordination of care (as documented) at patient's floor/unit and/or counseling patient: Coding Level of Care Code 55975 Subseq Hosp Care Lvl 2 Diagnoses Weakness R53.1 Hallucinations R44.3 UTI (urinary tract infection) N39.0 Macrocytic anemia D53.9 GERD with esophagitis K21.00 Alcohol use Z72.89 Wheelchair bound Z99.3 Vitamin B12 deficiency E53.8 History of breast cancer Z85.3 Leukocytopenia, unspecified D72.819
--- NOTE | 2021-10-16 16:53 | XRay Report ---
KUB pre MRI CLINICAL HISTORY: pre mri COMPARISON STUDY: Abdominal series September 19, 2015. FINDINGS: Calcifications within the pelvis may reflect calcified fibroids, phleboliths and vascular c alcifications. There is no contraindication to MRI within the abdomen or pelvis. No evidence for a tico wel obstruction. IMPRESSION: No contraindication to MRI within the abdomen or pelvis. ACT 112: Negative or not required by law. Electronically signed by: Ko Barfield M.D. 10/16/2021 4:51 PM
[2021-10-16] MEDS ORDERED: GADOBUTROL 65ML VIAL IV ONE (17:33)
--- NOTE | 2021-10-16 18:24 | Magnetic Resonance Report ---
MRI OF THE BRAIN WITHOUT AND WITH IV CONTRAST CLINICAL HISTORY: h/o breast cancer now with hallucinations COMPARISON STUDY: MRI of the brain December 17, 2013. Head CT October 13, 2021. TECHNIQUE: Utilizing a 1.5 Jaz magnet and dedicated coil, multiplanar, multiecho imaging of the br ain was performed pre and postcontrast administration. IV administration of 5.5 mL of Gadavist contr ast was uneventful. Thin cut T1 post contrast imaging was performed. FINDINGS: There are no foci of restricted diffusion to suggest acute infarct. No acute intracranial h emorrhage, midline shift or mass effect is present. Moderate atrophy is noted. Ventricular system is unremarkable. Basal cisterns are patent. There are no extra-axial collections. Flow-voids for the juan carlos or intracranial vessels are present. There is no intracranial mass or pathologic enhancement. White m atter T2 hyperintense foci favor small vessel disease. No calvarial lesions are identified. Small muc ous retention cyst within left maxillary sinus is noted. There is no evidence for sinusitis. IMPRESSION: 1. No acute intracranial findings. 2. No evidence of metastatic disease. 3. Moderate atrophy and small vessel disease. ACT 112: Negative or not required by law. Electronically signed by: Ko Barfield M.D. 10/16/2021 6:22 PM
[2021-10-16] MEDS: cefTRIAXone SODIUM 1,000 MG in DEXTROSE 5% 50 ML IV SCH (19:37)
--- NOTE | 2021-10-17 07:17 | Hospitalist Progress Note ---
Date of Service October 17, 2021 Assessment & Plan (1) Weakness: Plan: Presents with weakness and fatigue - has not been eating or drinking she endorses-severe protein calorie malnutrition - Urine suggestive of UTI but asymptomatic, completed 3 days of ceftriaxone - Thiamine 500mg IV q8 x 2 days now on po supplementation - Mag replaced - TSH slightly elevated at 5.778 but FT4 WNL - Recently hospitalized for same, pt lives alone, patient likely benefit from inpatient rehab stay - CM consult for d/c planning (2) Hallucinations: Plan: visual hallucinations, has history of the same, does not seem to active alcohol withdrawal, will have MRI of brain with history of cancer, was treated empirically for UTI with rocephin, culture negative. some maybe from metabolic encephalopathy, on presentation urine is with multiple organisms, will have 5 days of antibiotics The pt was offered medications to try to reduce or eliminate these but pt states is not bothering her, pt does not want meds at this time. (3) UTI (urinary tract infection): Plan: - UA LE 1+ Nit neg, bacteria 4 + with epi and WBC >30 - Urine culture multiple organisms, repeat 10/15/21 multiple organisms - Started empirically on Rocephin, treated for 5 days (4) Macrocytic anemia: Plan: Chronic MCV 105, hgb stable following EGD on 09/25 - continue B12 add folate (5) GERD with esophagitis: Plan: Continue with Protinix 40mg BID patient is asymptomatic - is to follow up with GI next week for re-eval - Has completed her Fluconazole PO - Has completed her therapy for H. Pylori (6) Alcohol use: Plan: Alcohol misuse she reports not drinking for 3 days, element of alcohol withdrawal with hallucinations, alcohol withdrawal now resolved - Previous h/o complicated withdrawal including visual and auditory hallucinations and DTs in 2016 - Thiamine 500 IV q8 x 2 days with transition to 100mg daily - AAWS score for at risk - with ativan - Pt does not drink heavily, usually 1 glass of wine/night -visual hallucinations without physiologic signs of withdrawal, so suspect may have hallucinations from mental health (7) Wheelchair bound: Plan: Able to transfer herself into and out reportedly from previous femur fracture issues - PT/OT eval to determine appropriate dispo on d/c (8) Vitamin B12 deficiency: Plan: - Continue with supplementation (9) History of breast cancer: Plan: - Continue Tamoxifen pt with severe protein malnutirion (10) Leukocytopenia, unspecified: Plan: Chronic likely marrow suppression from her chronic ETOH misuse - stable Admission and Anticipated Discharge Date Admission Date: October 14, 2021 Subjective pt still with some visual non troubling hallucination she is alert and oriented we had an engaging conversation, she was relieved that MRI of brain was negative Review of Systems Review of Systems: Mild distress and moderate fatigue no headache, no visual changes no speech or swallowing issues no chest pain, pressure or palpitations no shortness of breath, cough or wheezes no abdominal pain, nausea or vomiting, diarrhea or constipation no dysuria, hematuria or frequency no focal joint pain or swelling no back pain, CVA tenderness or radicular pain no bruising, bleeding or rashes no focal signs of weakness or numbness or altered sensation no complaints of anxiety or depression.is having non troubling visual hallucinations . Physical Exam Physical Exam: The patient appeared well nourished and normally developed. Vital signs as documented. Head exam is normocephalic atraumatic Neck is without JVD, thyromegaly, or carotid bruits. Lungs are clear to auscultation, no focal loss of breath sounds Cardiac exam, Rhythm is regular.. No murmurs, rubs or gallops. Abdominal exam reveals normal bowel sounds, soft non tender, no masses Extremities are nonedematous and both pedal pulses are present Neurologic exam is alert and oriented, no focal loss of strength or sensation Skin is without bruises or rashes Psychologically is with concerns for memory loss, visual hallucinations Results & Data Results & Data ([facility]) Vital Signs (Past 12 Hours) Vital Signs Temp Pulse Resp BP Pulse Ox O2 Del Method 10/16/21 22:30 97.9 F 91 H 17 129/88 97 Room Air PG Care Time/CCT Total # of Minutes Spent Total Time Spent with Patient: Total time spent is greater than 50% in coordination of care (as documented) at patient's floor/unit and/or counseling patient: Coding Level of Care Code 21631 Subseq Hosp Care Lvl 2 Diagnoses Weakness R53.1 Hallucinations R44.3 UTI (urinary tract infection) N39.0 Macrocytic anemia D53.9 GERD with esophagitis K21.00 Alcohol use Z72.89 Wheelchair bound Z99.3 Vitamin B12 deficiency E53.8 History of breast cancer Z85.3 Leukocytopenia, unspecified D74.934
[2021-10-17] MEDS: PANTOprazole 40 MG TAB PO SCH ×2 (08:20→20:05)
[2021-10-17] MEDS: CYANOCOBALAMIN (B-12) 500 MCG TABLET PO SCH (08:20)
[2021-10-17] MEDS: FOLIC ACID 1 MG in SYRINGE 9.8 ML IV SCH (08:21)
[2021-10-17] MEDS: ERYTHROMYCIN OP OINT 5 MG/GM 3.5 GM TUBE OP SCH ×2 (08:21→20:05)
[2021-10-17] MEDS: THIAMINE HCL 250 MG in SODIUM CHLORIDE 0.9% 50 ML IV SCH (08:30)
[2021-10-17] MEDS: MAGNESIUM CHLORIDE W/CALCIUM 64MG DELAYED REL TAB PO SCH (08:31)
[2021-10-17] MEDS: cefTRIAXone SODIUM 1,000 MG in DEXTROSE 5% 50 ML IV SCH (20:02)
--- NOTE | 2021-10-18 07:50 | Hospitalist Progress Note ---
Date of Service October 18, 2021 Assessment & Plan (1) Weakness: Plan: Presents with weakness and fatigue - has not been eating or drinking she endorses-severe protein calorie malnutrition - Urine suggestive of UTI but asymptomatic, completed 3 days of ceftriaxone - Thiamine 500mg IV q8 x 2 days now on po supplementation - Mag replaced - TSH slightly elevated at 5.778 but FT4 WNL - Recently hospitalized for same, pt lives alone, patient likely benefit from inpatient rehab stay - CM consult for d/c planning (2) Hallucinations: Plan: visual hallucinations, has history of the same, does not seem to active alcohol withdrawal, will have MRI of brain with history of cancer, was treated empirically for UTI with rocephin, culture negative. some maybe from metabolic encephalopathy, on presentation urine is with multiple organisms, will have 5 days of antibiotics The pt was offered medications to try to reduce or eliminate these but pt states is not bothering her, pt does not want meds at this time. (3) UTI (urinary tract infection): Plan: - UA LE 1+ Nit neg, bacteria 4 + with epi and WBC >30 - Urine culture multiple organisms, repeat 10/15/21 multiple organisms - Started empirically on Rocephin, treated for 5 days (4) Macrocytic anemia: Plan: Chronic MCV 105, hgb stable following EGD on 09/25 - continue B12 add folate (5) GERD with esophagitis: Plan: Continue with Protinix 40mg BID patient is asymptomatic - is to follow up with GI next week for re-eval - Has completed her Fluconazole PO - Has completed her therapy for H. Pylori (6) Alcohol use: Plan: Alcohol misuse she reports not drinking for 3 days, element of alcohol withdrawal with hallucinations, alcohol withdrawal now resolved - Previous h/o complicated withdrawal including visual and auditory hallucinations and DTs in 2016 - Thiamine 500 IV q8 x 2 days with transition to 100mg daily - AAWS score for at risk - with ativan - Pt does not drink heavily, usually 1 glass of wine/night -visual hallucinations without physiologic signs of withdrawal, so suspect may have hallucinations from mental health (7) Wheelchair bound: Plan: Able to transfer herself into and out reportedly from previous femur fracture issues - PT/OT eval to determine appropriate dispo on d/c (8) Vitamin B12 deficiency: Plan: - Continue with supplementation (9) History of breast cancer: Plan: - Continue Tamoxifen pt with severe protein malnutirion (10) Leukocytopenia, unspecified: Plan: Chronic likely marrow suppression from her chronic ETOH misuse - stable Admission and Anticipated Discharge Date Admission Date: October 14, 2021 Subjective pt still with some non troubling visual hallucination she is alert and oriented we had an engaging conversation Review of Systems Review of Systems: Mild distress and moderate fatigue no headache, no visual changes no speech or swallowing issues no chest pain, pressure or palpitations no shortness of breath, cough or wheezes no abdominal pain, nausea or vomiting, diarrhea or constipation no dysuria, hematuria or frequency no focal joint pain or swelling no back pain, CVA tenderness or radicular pain no bruising, bleeding or rashes no focal signs of weakness or numbness or altered sensation no complaints of anxiety or depression.is having non troubling visual hallucinations . Physical Exam Physical Exam: The patient appeared well nourished and normally developed. Vital signs as documented. Head exam is normocephalic atraumatic Neck is without JVD, thyromegaly, or carotid bruits. Lungs are clear to auscultation, no focal loss of breath sounds Cardiac exam, Rhythm is regular.. No murmurs, rubs or gallops. Abdominal exam reveals normal bowel sounds, soft non tender, no masses Extremities are nonedematous and both pedal pulses are present Neurologic exam is alert and oriented, no focal loss of strength or sensation Skin is without bruises or rashes Psychologically is with concerns for memory loss, visual hallucinations Results & Data Results & Data ([facility]) Vital Signs (Past 12 Hours) Vital Signs Temp Pulse Resp BP BP Pulse Ox O2 Del Method 10/18/21 07:25 98.1 F 79 18 121/74 99 Room Air 10/17/21 21:59 98.1 F 90 16 101/61 92 Room Air PG Care Time/CCT Total # of Minutes Spent Total Time Spent with Patient: Total time spent is greater than 50% in coordination of care (as documented) at patient's floor/unit and/or counseling patient: Coding Level of Care Code 93506 Subseq Hosp Care Lvl 2 Diagnoses Weakness R53.1 Hallucinations R44.3 UTI (urinary tract infection) N39.0 Macrocytic anemia D53.9 GERD with esophagitis K21.00 Alcohol use Z72.89 Wheelchair bound Z99.3 Vitamin B12 deficiency E53.8 History of breast cancer Z85.3 Leukocytopenia, unspecified D72.819
[2021-10-18] MEDS: MAGNESIUM CHLORIDE W/CALCIUM 64MG DELAYED REL TAB PO SCH (08:09)
[2021-10-18] MEDS: PANTOprazole 40 MG TAB PO SCH ×2 (08:09→21:49)
[2021-10-18] MEDS: THIAMINE HCL 100 MG TAB PO SCH (08:10)
[2021-10-18] MEDS: CYANOCOBALAMIN (B-12) 500 MCG TABLET PO SCH (08:10)
[2021-10-18] MEDS: ERYTHROMYCIN OP OINT 5 MG/GM 3.5 GM TUBE OP SCH ×2 (08:10→21:49)
[2021-10-18] MEDS: FOLIC ACID 1 MG in SYRINGE 9.8 ML IV SCH (08:11)
[2021-10-18] MEDS: TAMOXIFEN CITRATE 10 MG TABLET PO SCH (08:19)
[2021-10-18] MEDS: cefTRIAXone SODIUM 1,000 MG in DEXTROSE 5% 50 ML IV SCH (21:43)
[2021-10-19] MEDS: THIAMINE HCL 100 MG TAB PO SCH (08:26)
[2021-10-19] MEDS: ERYTHROMYCIN OP OINT 5 MG/GM 3.5 GM TUBE OP SCH ×2 (08:27→20:54)
[2021-10-19] MEDS: CYANOCOBALAMIN (B-12) 500 MCG TABLET PO SCH (08:27)
[2021-10-19] MEDS: MAGNESIUM CHLORIDE W/CALCIUM 64MG DELAYED REL TAB PO SCH (08:28)
[2021-10-19] MEDS: PANTOprazole 40 MG TAB PO SCH ×2 (08:28→20:53)
[2021-10-19] MEDS: FOLIC ACID 1 MG in SYRINGE 9.8 ML IV SCH ×2 (08:29→18:45)
--- NOTE | 2021-10-19 17:27 | Hospitalist Progress Note ---
Date of Service October 19, 2021 Assessment & Plan (1) Weakness: Plan: Presents with weakness and fatigue - has not been eating or drinking she endorses-severe protein calorie malnutrition - Urine suggestive of UTI but asymptomatic, completed 3 days of ceftriaxone - Thiamine 500mg IV q8 x 2 days now on po supplementation - Mag replaced - TSH slightly elevated at 5.778 but FT4 WNL - Recently hospitalized for same, pt lives alone, patient likely benefit from inpatient rehab stay - CM consult for d/c planning (2) Hallucinations: Plan: visual hallucinations, has history of the same, does not seem to active alcohol withdrawal, will have MRI of brain with history of cancer, was treated empirically for UTI with rocephin, culture negative. some maybe from metabolic encephalopathy, on presentation urine is with multiple organisms, will have 5 days of antibiotics The pt was offered medications to try to reduce or eliminate these but pt states is not bothering her, pt does not want meds at this time. (3) UTI (urinary tract infection): Plan: - UA LE 1+ Nit neg, bacteria 4 + with epi and WBC >30 - Urine culture multiple organisms, repeat 10/15/21 multiple organisms - Started empirically on Rocephin, treated for 5 days (4) Macrocytic anemia: Plan: Chronic MCV 105, hgb stable following EGD on 09/25 - continue B12 add folate (5) GERD with esophagitis: Plan: Continue with Protinix 40mg BID patient is asymptomatic - is to follow up with GI next week for re-eval - Has completed her Fluconazole PO - Has completed her therapy for H. Pylori (6) Alcohol use: Plan: Alcohol misuse she reports not drinking for 3 days, element of alcohol withdrawal with hallucinations, alcohol withdrawal now resolved - Previous h/o complicated withdrawal including visual and auditory hallucinations and DTs in 2016 - Thiamine 500 IV q8 x 2 days with transition to 100mg daily - AAWS score for at risk - with ativan - Pt does not drink heavily, usually 1 glass of wine/night -visual hallucinations without physiologic signs of withdrawal, so suspect may have hallucinations from mental health (7) Wheelchair bound: Plan: Able to transfer herself into and out reportedly from previous femur fracture issues - PT/OT eval to determine appropriate dispo on d/c (8) Vitamin B12 deficiency: Plan: - Continue with supplementation (9) History of breast cancer: Plan: - Continue Tamoxifen pt with severe protein malnutirion (10) Leukocytopenia, unspecified: Plan: Chronic likely marrow suppression from her chronic ETOH misuse - stable Admission and Anticipated Discharge Date Admission Date: October 14, 2021 Subjective pt continues with non troubling visual hallucination she is alert and oriented no focal complaints Review of Systems Review of Systems: Mild distress and moderate fatigue no headache, no visual changes no speech or swallowing issues no chest pain, pressure or palpitations no shortness of breath, cough or wheezes no abdominal pain, nausea or vomiting, diarrhea or constipation no dysuria, hematuria or frequency no focal joint pain or swelling no back pain, CVA tenderness or radicular pain no bruising, bleeding or rashes no focal signs of weakness or numbness or altered sensation no complaints of anxiety or depression.is having non troubling visual hallucinations . Physical Exam Physical Exam: The patient appeared well nourished and normally developed. Vital signs as documented. Head exam is normocephalic atraumatic Neck is without JVD, thyromegaly, or carotid bruits. Lungs are clear to auscultation, no focal loss of breath sounds Cardiac exam, Rhythm is regular.. No murmurs, rubs or gallops. Abdominal exam reveals normal bowel sounds, soft non tender, no masses Extremities are nonedematous and both pedal pulses are present Neurologic exam is alert and oriented, no focal loss of strength or sensation Skin is without bruises or rashes Psychologically is with concerns for memory loss, visual hallucinations Results & Data Results & Data ([facility]) Vital Signs (Past 12 Hours) Vital Signs Temp Pulse Resp BP Pulse Ox O2 Del Method 10/19/21 15:57 97.9 F 87 18 112/62 95 10/19/21 07:45 97.9 F 82 18 112/74 99 Room Air PG Care Time/CCT Total # of Minutes Spent Total Time Spent with Patient: Total time spent is greater than 50% in coordination of care (as documented) at patient's floor/unit and/or counseling patient: Coding Level of Care Code 71343 Subseq Hosp Care Lvl 2 Diagnoses Weakness R53.1 Hallucinations R44.3 UTI (urinary tract infection) N39.0 Macrocytic anemia D53.9 GERD with esophagitis K21.00 Alcohol use Z72.89 Wheelchair bound Z99.3 Vitamin B12 deficiency E53.8 History of breast cancer Z85.3 Leukocytopenia, unspecified D72.818
[2021-10-20 06:17] LABS: Hematocrit (blood only) 27.9 % (34.1-44.9); Hemoglobin 9.2 g/dl (12.0-16.0); Mean Corpuscular Hemoglobin 33.9 pg (25.0-34.0); Mean Platelet Volume 9.4 fL (9.4-12.3); Platelet Count 284 K/uL (130-400); RDW Coefficient of Variation 17.8 % (11.5-14.5); RDW Standard Deviation 67.2 fL (36.4-46.3); Red Blood Count 2.71 M/uL (3.93-5.22); White Blood Count 3.17 K/ul (4.8-10.8)
[2021-10-20 06:44] LABS: Calcium 7.7 mg/dl (8.5-10.1); Creatinine Clr Calc Pharmacy 99.7 ml/min; Est GFR (African American) 114.5 ml/min; Est GFR (Non-African American) 98.8 ml/min; Magnesium 1.6 mg/dl (1.7-2.4); Potassium 3.1 mmol/L (3.5-5.1)
[2021-10-20] MEDS: MAGNESIUM CHLORIDE W/CALCIUM 64MG DELAYED REL TAB PO SCH (08:16)
[2021-10-20] MEDS: THIAMINE HCL 100 MG TAB PO SCH (08:16)
[2021-10-20] MEDS: CYANOCOBALAMIN (B-12) 500 MCG TABLET PO SCH (08:16)
[2021-10-20] MEDS: PANTOprazole 40 MG TAB PO SCH (08:16)
[2021-10-20] MEDS: TAMOXIFEN CITRATE 10 MG TABLET PO SCH (08:16)
[2021-10-20] MEDS: ERYTHROMYCIN OP OINT 5 MG/GM 3.5 GM TUBE OP SCH (08:17)
[2021-10-20] MEDS ORDERED: FOLIC ACID 1 MG TAB PO SCH (09:00)
[2021-10-20] MEDS ORDERED: POTASSIUM CHLORIDE CRTAB 20 MEQ TABCR PO STA (13:33)
--- NOTE | 2021-10-20 17:51 | Discharge Summary ---
Date of Service October 20, 2021 Admission HPI Per Admitting Provider [id number] YOF: Comes to the hospital today after being found on the ground with unknown time by her caregiver. She is wheelchair dependant secondary to history of femur fracture. She reports that she hasn't been eating or drinking for the past 3 days or sleeping well. This has been ongoing for the past week she feels. She can recall why she fell as she didn't feel like pulling her wheelchair closer and tried to "leap" from couch to her chair. She feels that most of her feelings above are related to her increase in medications over the past month. She also endorses that she hasn't drank in 3-4 days. She normally drinks a box of wine over 2-3 days. She denies any other pain, confusion, or fevers at home. Patient will be observed overnight, frequent neurological exams, and AWWS scoring with PRN dosing. She will be given Thiamine 500mg IV TID, LR overnight. Her CK are normal, renal function normal. Will check MG PO4. PT/OT consult. Patient was previously seen in early September for UGIB found to have esophagitis as well as gastritis and H. Pylori infection. She was treated with triple therapy for this and finished this up this week. She also continued Fluconazole for her esophagitis COVID test on admission is: NEGATIVE Principal Diagnosis weakness and gait instability uti poa treated metabolic encephalopathy resolved alcohol withdrawal chronic hallucinations not associated with alcohol withdrawal macrocytic anemia Discharge Exam The patient appeared stable Vital signs as documented. Lungs are clear to auscultation and appear unlabored Cardiac exam, Rhythm is regular.. No murmurs, rubs or gallops. Abdominal exam reveals normal bowel sounds, soft non tender, no masses Extremities are nonedematous and both pedal pulses are normal. Neurologic exam is alert and oriented, at times speaks tangentially, has right leg weakness from previous surgical repair Skin is without bruises or rashes Psychologically is with concerns for memory loss and some hallucinations Discharge Data Allergies Allergy/AdvReac Type Severity Reaction Status Date / Time bee venom protein (honey bee) Allergy Severe ANAPHYLAXIS Verified 10/13/21 18:36 adhesive Allergy Intermediate HIVES Verified 10/13/21 18:36 latex Allergy Intermediate Hives Verified 10/13/21 18:36 metronidazole [From Flagyl] AdvReac Intermediate CAUSES Verified 10/13/21 18:36 YEAST INFECTIONS Consultations 10/13/21 18:08 ED Decision to Admit Stat Ordered Studies 10/13/21 16:00 CT head/brain wo con Stat 10/16/21 13:44 MRI Brain [MR brain wo/w con] Routine Hospital Course (1) Weakness: Presents with weakness and fatigue - has not been eating or drinking she endorses-severe protein calorie malnutrition - Urine suggestive of UTI but asymptomatic, completed 3 days of ceftriaxone - Thiamine 500mg IV q8 x 2 days now on po supplementation - Mag replacement ongoing, along with potassium and surveilence - TSH slightly elevated at 5.778 but FT4 WNL - Recently hospitalized for same, pt lives alone, patient likely benefit from inpatient rehab stay - CM consult for d/c planning (2) Hallucinations: visual hallucinations, has history of the same, does not seem to active alcohol withdrawal, will have MRI of brain with history of cancer, was treated empirically for UTI with rocephin, culture negative. some maybe from metabolic encephalopathy, on presentation urine is with multiple organisms, will have 5 days of antibiotics The pt was offered medications to try to reduce or eliminate these but pt states is not bothering her, pt does not want meds at this time. (3) UTI (urinary tract infection): - UA LE 1+ Nit neg, bacteria 4 + with epi and WBC >30 - Urine culture multiple organisms, repeat 10/15/21 multiple organisms - Started empirically on Rocephin, treated for 5 days (4) Macrocytic anemia: Chronic MCV 105, hgb stable following EGD on 09/25 - supplementation after discharge with improved diet (5) GERD with esophagitis: Continue with Protinix 40mg BID patient is asymptomatic - is to follow up with GI as outpt once DC from rehab, certainly abstinence from alcohol will help - Has completed her Fluconazole PO - Has completed her therapy for H. Pylori (6) Alcohol use: Alcohol misuse she reports not drinking for 3 days, element of alcohol withdrawal with hallucinations, alcohol withdrawal now resolved - Previous h/o complicated withdrawal including visual and auditory hallucinations and DTs in 2016 - Thiamine 500 IV q8 x 2 days with transition to 100mg daily - AAWS score for at risk - with ativan - Pt does not drink heavily, usually 1 glass of wine/night -visual hallucinations without physiologic signs of withdrawal, so suspect may have hallucinations from mental health (7) Wheelchair bound: Able to transfer herself into and out reportedly from previous femur fracture issues - (8) Vitamin B12 deficiency: - Continue with supplementation (9) History of breast cancer: - Continue Tamoxifen pt with severe protein malnutirion (10) Leukocytopenia, unspecified: Chronic likely marrow suppression from her chronic ETOH misuse - stable Total Time Total Time Spent Total Time Spent (In Minutes): It required greater than 30 minutes to prepare this patient for discharge Discharge Plan Discharge Items Patient Disposition: Transfer Assisted Fac Reason For Visit: CONFUSION, FALL Discharge Diagnosis: alcohol withdrawal UTI poa ambulatory dysfunction hallucinations not associated wtih alcohol withdrawal Activity: Per Instructions section Non-emergency contact: Primary Care Provider Call non-emergency contact if: your symptoms worsen Follow-up/Referrals: Nubia Pratt MD [Primary Care Provider] - Diet: Regular Addtl Attending Provider Instructions: Please continue thiamine supplementation, and encouragement of alcohol cessation follow up with primary care after discharge from rehab Pt has had low potassium and magnesium, please check electrolytes and magnesium sometime this week Pending Studies at Discharge: No Stand-Alone Forms: My [facility] Skilled Items Patient informed of condition?: Yes DNR: No Discharge Level of Care: Acute rehab Communicable Disease: No Discharge Prognosis: Stable Lines: None Urinary Catheter: No Medications and DC Order Prescriptions: New thiamine HCl (vitamin B1) 100 mg Tablet 100 mg PO QAM Qty: 30 0RF folic acid 1 mg Tablet 1 mg PO QAM Qty: 30 0RF Mag 64 64 mg Tablet,Delayed Release (Dr/Ec) 128 mg PO QAM Qty: 60 0RF potassium chloride 20 mEq tablet extended release 20 meq PO DAILY Qty: 30 0RF Continued pantoprazole 40 mg tablet,delayed release (DR/EC) 40 mg PO BID Qty: 60 5RF tamoxifen 10 mg Tablet 10 mg PO Q2D epinephrine 0.3 mg/0.3 mL auto-injector 0.3 mg IM UD PRN (Reason: Allergic Reaction) cyanocobalamin (vitamin B-12) 500 mcg Tablet 1,000 mcg PO QAM Qty: 30 0RF hydroxyzine HCl 10 mg Tablet 10 mg PO DAILY PRN (Reason: Anxiety) Discontinued gabapentin 300 mg capsule 300 mg PO HS bismuth subsalicylate 262 mg tablet,chewable 2 tab PO QID PRN (Reason: UPSET STOMACH) Discharge Orders: Discharge Order (Routine); Ordered 10/20/21 Ordered By: Jw Ponce Admission Data Admit Date/Time: 10/14/21 16:41 Attending Provider: Jw Ponce Admit Provider: Abelino Wilder Primary Care Provider: Nubia Pratt Other Providers: Abelino Wilder ; [facility] ; [place], [place] ; [facility] ; [facility] ; [facility] Other Interventions: Discharge Summary Assessment (RN) Last Done: 10/20/21 13:23 Coding Level of Care Code D/C DAY MANAGEMENT >30 MINS Diagnoses Weakness R53.1 Hallucinations R44.3 UTI (urinary tract infection) N39.0 Macrocytic anemia D53.9 GERD with esophagitis K21.00 Alcohol use Z72.89 Wheelchair bound Z99.3 Vitamin B12 deficiency E53.8 History of breast cancer Z85.3 Leukocytopenia, unspecified D72.819
== END 2021-10-20 14:20 | DRG 896 ==
LOC: ED 15:43 → EDINP 15:43 → SUATTDRO 19:07 → 3N 22:00